=== PATIENT | female | born 1955 | race Caucasian/White ===

== ENCOUNTER 2019-10-21 01:46 | Inpatient (IN) | payer BC ==
[2019-10-21] VITALS (9 sets, daily range): BP systolic 123–157; BP diastolic 52–87
[~2019-10-21] VITALS: Ht 167.6 cm; Wt 74.4 kg
--- NOTE | 2019-10-21 02:17 | Emergency Room Report ---
History of Present Illness General Chief Complaint: Gastrointestinal Illness Source: Patient Present Illness HPI Patient is a 64-year-old female status post partial colectomy with pouch placement who presents to the ER for slipped valve. Patient is unable to catheterize her pouch. She just flew in from [place] and is a patient of Dr. Ortiz. Patient denies any fever or chills. She denies any nausea or vomiting. She denies any abdominal pain. Allergies: Uncoded Allergies: SULFA (Allergy, Unknown, 10/21/19) COVID-19 Screening Contact w/high risk pt: No Recent Travel to affected area: No Experienced COVID-19 symptoms?: No COVID-19 Testing performed HEAD INSPECTOR: No Patient History Reviewed Nursing Documentation: PMH: Agreed; PSxH: Agreed Nursing Documentation-PMH Hx Gastrointestinal Problems: Yes - UC, Review of Systems All Other Systems: negative except mentioned in HPI Physical Exam Vital Signs Date Time Temp Pulse Resp B/P (MAP) Pulse Ox O2 Delivery O2 Flow Rate FiO2 10/21/19 02:06 98.1 77 19 136/67 (90) 99 Room Air Sp02 EP Interpretation: reviewed, normal General Appearance: no apparent distress, alert, GCS 15, non-toxic Head: normocephalic, atraumatic Eyes: bilateral eye normal inspection, bilateral eye PERRL ENT: hearing grossly normal, normal pharynx, no angioedema, normal voice Neck: full range of motion, supple/symm/no masses Respiratory: chest non-tender, lungs clear, normal breath sounds, speaking full sentences Cardiovascular #1: regular rate, rhythm, no edema Gastrointestinal: non tender, soft, no guarding, no rebound, other - RLQ patent stoma with catheter tied off in place Rectal: deferred Genitourinary: no CVA tenderness Musculoskeletal: normal inspection Neurologic: alert, mail sorter III-XII nml as tested, oriented, oriented x3 Psychiatric: no suicidal/homicidal ideation Skin: no rash Lymphatic: no adenopathy Procedures Critical Care Time Critical Care Time Total critical care time: Approximately 35 minutes. Due to a high probability of clinically significant, life threatening deterioration, the patient required my highest level of preparedness to intervene emergently and I personally spent this critical care time directly and personally managing the patient. This critical care time included obtaining a history; examining the patient; pulse oximetry; ordering and review of studies; arranging urgent treatment with development of a management plan; evaluation of patient's response to treatment ; frequent reassessment; and, discussions with other providers.This critical care time was performed to assess and manage the high probability of imminent, life-threatening deterioration that could result in multi-organ failure. It was exclusive of separately billable procedures and treating other patients and teaching time. Please see MDM section and the rest of the note for further information on patient assessment and treatment. Medical Decision Making Diagnostic Impression: Primary Impression: Anemia Additional Impressions: Hyponatremia Gastroenterology follow-up encounter Hypomagnesemia ER Course Patient found to be hyponatremic with a sodium of 122. Patient also anemic with hemoglobin of 7.7. 1 unit of packed red blood cells has been ordered and is pending. Patient states that she has a history of anemia requiring blood transfusions in the past. Patient given 1 L of IV fluids. Patient also found to be hypomagnesemic with a magnesium level of 1.4. 1 g of magnesium sulfate has been ordered. Dr. Corbett called ahead and already has a bed ordered for the patient. He said that he did not need to be reconsulted unless something was emergent. Patient to be admitted to his service for further treatment and evaluation. Laboratory Tests Test 10/21/19 02:35 White Blood Count 3.5 K/UL (4.8-10.8) L Red Blood Count 3.86 M/UL (4.20-5.40) L Hemoglobin 7.7 G/DL (12.0-16.0) L Hematocrit 30.5 % (37.0-47.0) L Mean Corpuscular Volume 79 FL (80-99) L Mean Corpuscular Hemoglobin 20.0 PG (27.0-31.0) L Mean Corpuscular Hemoglobin Concent 25.3 G/DL (32.0-36.0) L Red Cell Distribution Width 12.3 % (11.6-14.8) Platelet Count 453 K/UL (150-450) H Mean Platelet Volume 5.0 FL (6.5-10.1) L Neutrophils (%) (Auto) % (45.0-75.0) Lymphocytes (%) (Auto) % (20.0-45.0) Monocytes (%) (Auto) % (1.0-10.0) Eosinophils (%) (Auto) % (0.0-3.0) Basophils (%) (Auto) % (0.0-2.0) Prothrombin Time 11.1 SEC (9.30-11.50) Prothrombin Time INR 1.0 (0.9-1.1) Activated Partial Thromboplast Time 27 SEC (23-33) Urine Color Pale yellow Urine Appearance Clear Urine pH 6 (4.5-8.0) Urine Specific [place] 1.005 (1.005-1.035) Urine Protein Negative (NEGATIVE) Urine Glucose (UA) Negative (NEGATIVE) Urine Ketones Negative (NEGATIVE) Urine Blood Negative (NEGATIVE) Urine Nitrite Negative (NEGATIVE) Urine Bilirubin Negative (NEGATIVE) Urine Urobilinogen Normal MG/DL (0.0-1.0) Urine Leukocyte Esterase Negative (NEGATIVE) Sodium Level 122 MMOL/L (136-145) L Potassium Level 3.6 MMOL/L (3.5-5.1) Chloride Level 83 MMOL/L (98-107) L Carbon Dioxide Level 29 MMOL/L (21-32) Anion Gap 10 mmol/L (5-15) Blood Urea Nitrogen 8 mg/dL (7-18) Creatinine 0.9 MG/DL (0.55-1.30) Estimated Glomerular Filtration Rate > 60 mL/min (>60) Glucose Level 105 MG/DL (74-106) Calcium Level 9.4 MG/DL (8.5-10.1) Magnesium Level 1.4 MG/DL (1.8-2.4) L Total Bilirubin 0.5 MG/DL (0.2-1.0) Aspartate Amino Transferase (AST) 44 U/L (15-37) H Alanine Aminotransferase (ALT) 57 U/L (12-78) Alkaline Phosphatase 89 U/L (46-116) Total Protein 8.5 G/DL (6.4-8.2) H Albumin 3.8 G/DL (3.4-5.0) Globulin 4.7 g/dL Albumin/Globulin Ratio 0.8 (1.0-2.7) L Last Vital Signs Date Time Temp Pulse Resp B/P (MAP) Pulse Ox O2 Delivery O2 Flow Rate FiO2 10/21/19 02:06 98.1 77 19 136/67 (90) 99 Room Air Disposition: ADMITTED INPATIENT Condition: Critical Mitzy Montes M.D. Oct 21, 2019 02:17
--- NOTE | 2019-10-21 02:30 | NUR ---
ED Nurse Note: Pt walked into ED from home for c/o valve issue from BCIR. Pt notes BCIR was done about 15 years ago in [place]. She is now a pt of Dr. Corbett. Pt denies fever, cough, SOB. Pt denies any pain. Pt is aaox4, breathing is normal and unlabored. Pt is ambulatory with steady gait. IV line established, blood drawn and sent to lab. Urine sample also obtained.
[2019-10-21 02:53] LABS: APPEARANCE,URINE CLEAR; BILIRUBIN, URINE NEGATIVE (NEGATIVE); COLOR,URINE PALE YELLOW; GLUCOSE, URINE (UA) NEGATIVE (NEGATIVE); KETONES,URINE NEGATIVE (NEGATIVE); LEUKOCYTE ESTERASE ,URINE NEGATIVE (NEGATIVE); NITRITE,URINE NEGATIVE (NEGATIVE); PH,URINE 6 (4.5-8.0); PROTEIN,URINE NEGATIVE (NEGATIVE); UROBILINOGEN,URINE NORMAL MG/DL (0.0-1.0)
[2019-10-21 02:54] LABS: HEMATOCRIT 30.5 % (37.0-47.0); HEMOGLOBIN 7.7 G/DL (12.0-16.0); MEAN CORPUSCULAR VOLUME 79 FL (80-99); PLATELET COUNT 453 K/UL (150-450); RED BLOOD COUNT 3.86 M/UL (4.20-5.40); RED CELL DISTRIBUTION WIDTH 12.3 % (11.6-14.8); WHITE BLOOD COUNT 3.5 K/UL (4.8-10.8)
[2019-10-21 03:05] LABS: ANION GAP 10 mmol/L (5-15); BLOOD UREA NITROGEN 8 mg/dL (7-18); CALCIUM 9.4 MG/DL (8.5-10.1); CARBON DIOXIDE 29 MMOL/L (21-32); CHLORIDE 83 MMOL/L (98-107); CREATININE 0.9 MG/DL (0.55-1.30); POTASSIUM 3.6 MMOL/L (3.5-5.1); SODIUM 122 MMOL/L (136-145)
[2019-10-21 03:09] LABS: ALANINE AMINOTRANSFERASE 57 U/L (12-78); ALBUMIN 3.8 G/DL (3.4-5.0); ALBUMIN/GLOBULIN RATIO 0.8 (1.0-2.7); ALKALINE PHOSPHATASE 89 U/L (46-116); ASPARTATE AMINO TRANSFERASE 44 U/L (15-37); BILIRUBIN,TOTAL 0.5 MG/DL (0.2-1.0)
--- NOTE | 2019-10-21 05:00 | NUR ---
ED Nurse Note: Blood transfusion started at this time. VSS. Will monitor pt for signs of transfusion reaction.
--- NOTE | 2019-10-21 05:15 | NUR ---
ED Nurse Note: Pt is tolerating transfusion well. No adverse reactions noted. PRBCs infusing at 120 ml/hr now. Will continue to monitor. VSS. Pt is resting in bed.
[2019-10-21] MEDS ORDERED: CYMBALTA30 MG ORAL (05:20)
[2019-10-21] MEDS ORDERED: ZYPREXA10 MG ORAL (05:20)
[2019-10-21] MEDS ORDERED: LORAZEPAM2 MG/1 M1 PO (05:20)
--- NOTE | 2019-10-21 05:20 | NUR ---
ED Nurse Note: Report given to MARIANO Webber.
--- NOTE | 2019-10-21 05:27 | NUR ---
NURSE NOTES: Received telephone report from MARIANO Olmstead (ED). Pt will be coming up shortly.
--- NOTE | 2019-10-21 05:30 | NUR ---
ED Nurse Note: Pt is stable for trasnfer to unit at this time per ERMD. Pt is aaox4, no respiratory or cardiac distress. Pt taken to unit via gurney by RN. Pt belongings sent with pt. Endorsed plan of care and pt is going to unit with PRBCs infusing at 120 ml/hr to receiving RN. VSS. Pt IVs are patent and intact. Pt has no complaints at this time. Transferred without complications.
--- NOTE | 2019-10-21 05:40 | NUR ---
NURSE NOTES: Received pt from ED. Pt ambulatory. A&ox4, in room air. No s/s of acute distress & n c/o pain at this time. Pt belongings signed & accounted for. Oriented to hospital facility. Will enter written orders from Dr. Corbett. Easily put in 28fr maravilla into pouch, flushed with 20cc of NS. Pt tolerated very well current blood transfusion infusing. IV sites x2 intact. Skin assessment done. Plan of care discussed.
[2019-10-21] MEDS ORDERED: LORazepam 1mg tab ORAL PRN (06:30)
--- NOTE | 2019-10-21 07:00 | NUR ---
NURSE NOTES: Blood transfusion done. VSS.
--- NOTE | 2019-10-21 07:14 | Diagnostic Imaging Report ---
ADDENDUM - Added by Semaj Valle MD on 10/21/2019 9:35 AM (-04:00) Only a frontal view of the chest was submitted. EXAM: XR Chest, 2 Views CLINICAL HISTORY: PREOP TECHNIQUE: Frontal and lateral views of the chest. COMPARISON: No relevant prior studies available. FINDINGS: Lungs: Unremarkable. No consolidation. Mild, chronically increased interstitial markings. Pleural space: Unremarkable. No pneumothorax. Heart: Unremarkable. No cardiomegaly. Mediastinum: Unremarkable. Bones/joints: Surgical clip within the left upper quadrant. IMPRESSION: Normal chest x-rays.
[2019-10-21] MEDS ORDERED: D5 1/2NS w/KCl 20mEq 1,000 ML IV SCH (07:30)
--- NOTE | 2019-10-21 07:30 | NUR ---
HAND-OFF: Report given to MARIANO Burton. Pt in stable condition.
--- NOTE | 2019-10-21 07:44 | NUR ---
NURSE NOTES: Report received from Lawanda RN, rounds made. Patient AOx4 calm. No distress on RA. Respirations even/unlabored. Blood transfusion completed, NS infusing to clear blood from line, via RFA, site asymptomatic. LH heplock intact. Right abdomen BCIR in place, catheter secured with silk tape, draining to gravity, light green output, will irrigate every 3 hours as ordered. Denies pain, SOB, NV. Reinforced NPO status, ice chips provided. Plans for Saucedo Pouch Endoscopy today, consent signed. Call light in reach, bed in lowest position, will continue to monitor.
--- NOTE | 2019-10-21 08:28 | General Progress Note ---
Progress Note Progress Note H&P dictated. Admitted from ED with malfunctioning Saucedo Continent ileostomy with severe difficulty intubating her pouch, and gross incontinence of stool and gas. She has not had bleeding. She took Cipro for pouchitis 3 months ago, first episode in years. In ED found to have Hgb 7.7 Na 122 Mg 1.4 AVSS Abdomen soft, flat, long midline scar, Saucedo pouch stoma low in RLQ 28 Simmons readily inserted into Saucedo pouch WBC 3500 Hgb 7.7 (transfused one unit in ED) Platelets 453,000 Na 122 K 3.6 BUN 8 Cr 0.9 Mg 1.4 albumin 3.8 Imp: Malfunctioning Saucedo continent ileostomy with inability to intubate to evacuate stool Severe anemia - no history of bleeding Severe hyponatremia Plan: Transfuse 2 units PRBC (one given in ED) Mg infusions STAT Fe, ferritin, B12 and folic acid levels F/U labs in AM Continuous drainage of Saucedo pouch Endoscopy today of Saucedo continent ileostomy Dayron Corbett MD Oct 21, 2019 08:28
[2019-10-21] MEDS ORDERED: LORazepam 1mg tab ORAL SCH (09:00)
[2019-10-21] MEDS ORDERED: OLANZapine 10mg tab ORAL SCH (09:00)
--- NOTE | 2019-10-21 09:27 | Anethesia Preoperative Eval ---
Anesthesia Pre-op PMH/ROS General Date of Evaluation: Oct 21, 2019 Anesthesiologist: Cande ASA Score: ASA 3 Mallampati Score Class I : Soft palate, uvula, fauces, pillars visible Class II: Soft palate, uvula, fauces visible Class III: Soft palate, base of uvula visible Class IV: Only hard plate visible Mallampati Classification: Class II Surgeon: Aric Diagnosis: Malfunctioning Saucedo Continent Ileostomy Surgical Procedure: Revision Malfunctioning Saucedo Continent Ileostomy Family History: no anesthesia problems Allergies: Uncoded Allergies: SULFA (Allergy, Unknown, 10/21/19) Medications: see eMAR Patient NPO?: Yes Past Medical History Cardiovascular: Reports: HTN Gastrointestinal/Genitourinary: Reports: other - Ulcerative Colitis Neurologic/Psychiatric: Reports: depression/anxiety Hematology/Immune: Reports: anemia - Severe PSxH Narrative: Partial Colectomy, BCIR Anesthesia Pre-op Phys. Exam Physician Exam Last Vital Signs Date Time Temp Pulse Resp B/P (MAP) Pulse Ox O2 Delivery O2 Flow Rate FiO2 10/21/19 08:00 98.0 77 19 137/67 (90) 97 10/21/19 06:44 Room Air Constitutional: NAD Neurologic: CN 2-12 intact Cardiovascular: RRR Respiratory: CTA Gastrointestinal: S/NT/ND Airway Exam Mallampati Score: Class II MO: full ROM: full Teeth: missing, intact Anesthesia Pre-op A/P Labs Hematology Test 10/21/19 02:35 White Blood Count 3.5 K/UL (4.8-10.8) L Red Blood Count 3.86 M/UL (4.20-5.40) L Hemoglobin 7.7 G/DL (12.0-16.0) L Hematocrit 30.5 % (37.0-47.0) L Mean Corpuscular Volume 79 FL (80-99) L Mean Corpuscular Hemoglobin 20.0 PG (27.0-31.0) L Mean Corpuscular Hemoglobin Concent 25.3 G/DL (32.0-36.0) L Red Cell Distribution Width 12.3 % (11.6-14.8) Platelet Count 453 K/UL (150-450) H Mean Platelet Volume 5.0 FL (6.5-10.1) L Neutrophils (%) (Auto) % (45.0-75.0) Lymphocytes (%) (Auto) % (20.0-45.0) Monocytes (%) (Auto) % (1.0-10.0) Eosinophils (%) (Auto) % (0.0-3.0) Basophils (%) (Auto) % (0.0-2.0) Coagulation Test 10/21/19 02:35 Prothrombin Time 11.1 SEC (9.30-11.50) Prothromb Time International Ratio 1.0 (0.9-1.1) Activated Partial Thromboplast Time 27 SEC (23-33) Chemistry Test 10/21/19 02:35 Sodium Level 122 MMOL/L (136-145) L Potassium Level 3.6 MMOL/L (3.5-5.1) Chloride Level 83 MMOL/L (98-107) L Carbon Dioxide Level 29 MMOL/L (21-32) Anion Gap 10 mmol/L (5-15) Blood Urea Nitrogen 8 mg/dL (7-18) Creatinine 0.9 MG/DL (0.55-1.30) Estimat Glomerular Filtration Rate > 60 mL/min (>60) Glucose Level 105 MG/DL (74-106) Calcium Level 9.4 MG/DL (8.5-10.1) Magnesium Level 1.4 MG/DL (1.8-2.4) L Total Bilirubin 0.5 MG/DL (0.2-1.0) Aspartate Amino Transf (AST/SGOT) 44 U/L (15-37) H Alanine Aminotransferase (ALT/SGPT) 57 U/L (12-78) Alkaline Phosphatase 89 U/L (46-116) Total Protein 8.5 G/DL (6.4-8.2) H Albumin 3.8 G/DL (3.4-5.0) Globulin 4.7 g/dL Albumin/Globulin Ratio 0.8 (1.0-2.7) L Risk Assessment & Plan Assessment: ASA 3 Plan: GA Status Change Before Surgery: No Pre-Antibiotics Drug: Bernardino Jay MD Oct 21, 2019 09:27
--- NOTE | 2019-10-21 10:51 | Pre-Procedure Note/Attestation ---
Pre-Procedure Note/Attestation Complete Prior to Procedure Planned Procedure: not applicable Procedure Narrative: Saucedo continent ileostomy pouch endoscopy Indications for Procedure Pre-Operative Diagnosis: malfunctioning Saucedo pouch with difficulty intubating and incontinence Attestation I attest that I discussed the nature of the procedure; its benefits; risks and complications; and alternatives (and the risks and benefits of such alternatives ), prior to the procedure, with the patient (or the patient's legal premium representative). I attest that, if there was a reasonable possibility of needing a blood transfusion, the patient (or the patient's legal premium representative) was given the [facility] standardized written summary, pursuant to the Duane Balbina Blood Safety Act ([place] Health and Safety Code # 1645, as amended). I attest that I re-evaluated the patient just prior to the surgery and that there has been no change in the patient's H&P, except as documented below: none Dayron Corbett MD Oct 21, 2019 10:51
--- NOTE | 2019-10-21 11:25 | NUR ---
NURSE NOTES: PRBC (2 nd unit) started at 1110, vitals remains stable. Patient denies any adverse reaction at this time, will continue to monitor.
--- NOTE | 2019-10-21 11:51 | NUR ---
*-* NO INSURANCE INFORMATION IN THE BAR UNABLE TO SEND CLINICALS OR REVIEWS *-*
--- NOTE | 2019-10-21 12:40 | NUR ---
NURSE NOTES: Patient sent down to GI lab for Saucedo Pouch Endoscopy at this time, via gurney in stable condition, on RA. PRBC infusing to RFA, without difficulty, vitals stable, patient AOx4, calm. GI lab aware blood transfusion is currently infusing at this time. GI lab procedure checklist completed.
--- NOTE | 2019-10-21 12:45 | Pre-op HX & Phy Repo 2 SIG ---
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 The patient has a past history of ulcerative colitis and has previously undergone total colectomy with failed J-pouch and creation of Saucedo continent ileostomy and with revisions, all of which will be listed at the end of this dictation. In the past several weeks, she suddenly developed difficulty inserting her catheter and incontinence of stool and gas from her previously continent Saucedo pouch stoma. She was finally able to get a catheter in place, but this does not drain well. At the time she presented, her hemoglobin was 7.7. She has had no evidence of bleeding. She was hemodynamically stable. The patient was assessed and an indwelling 28-[place] Simmons catheter manipulated through her stoma into the continent ileostomy pouch and connected to gravity drainage. She required transfusion in the emergency department. PAST MEDICAL HISTORY: Operations, see list at the end of this dictation. MEDICATIONS: Zyprexa, Cymbalta, and lorazepam. ALLERGIES: Latex. PHYSICAL EXAMINATION: GENERAL: The patient is well developed and well nourished, 5 feet 8 inches, 165 pounds, in no distress with completely stable vital signs. VITAL SIGNS: Within normal limits. HEENT: Within normal limits. LUNGS: Clear. HEART: Regular rhythm. BREASTS: Without masses. ABDOMEN: Soft and not distended. There is a long midline scar with a periumbilical incisional hernia which is reducible and non-tender. The stoma of the Saucedo continent ileostomy is low in the right lower quadrant. PELVIC: By primary care recently. RECTAL: Status post proctectomy. EXTREMITIES: Without edema. Pulses 2+ femoral to pedal bilateral NEUROLOGIC: Physiologic. LABORATORY DATA: WBC 3500, hemoglobin 7.7, platelets 453,000. Sodium 122, potassium 3.6, BUN 8, creatinine 0.9. Magnesium is low 1.4. Albumin 3.8. Additional information. The patient states that she hardly ever has pouchitis, but she took Cipro three months ago. IMPRESSION: 1. Malfunctioning Saucedo continent ileostomy with inability to intubate and incontinence of stool and gas. 2. History of ulcerative colitis. 3. STATUS POST MULTIPLE ABDOMINAL OPERATIONS: 3.1. Total colectomy with ileoanal J-pouch first in 1989 and then repeated, failed both times. 3.2. Saucedo continent ileostomy in 1994. 3.3. Repair of spontaneous Saucedo pouch perforation with repair of 2 perforations 2009 3.4. Repair of Saucedo pouch fistula in 2012. (All of these operations were done in other states) PLAN: The patient will be admitted and will receive two units of blood and will have iron studies, vitamin B12, folic acid and ferritin levels. She will be given intravenous fluids to correct electolyte abnormalities, kept NPO with indwelling continent ileostomy pouch catheter to drainage. She will undergo pouch endoscopy to precisely define the cause of her difficulty with intubation and incontinence and she will be prepared for surgery to be performed when she is stable and fluid and electrolyte abnormalities and severe anemia have been corrected. Dayron Corbett M.D. DR: PERCY JOB#: [id number] CC: MORENO
--- NOTE | 2019-10-21 13:16 | Brief Operative Note ---
Immediate Post Operative Note Operative Note Pre-op Diagnosis: malfunctioning Saucedo pouch with difficulty intubating and incontinence Procedure: Saucedo continent ileostomy pouch endoscopy Post-op Diagnosis: partially slipped nipple valve Post-op Diagnosis: same as pre-op Findings: consistent w/pre-op dx studies Surgeon: danna Anesthesia: other - none Specimen: none Complications: none Condition: stable Fluids: none Estimated Blood Loss: none Drains: other - 28 maravilla to Saucedo pouch Packing: F Implant(s) used?: No Dayron Corbett MD Oct 21, 2019 13:16
[2019-10-21] MEDS ORDERED: Heparin1,000 units/500ml Premix(Conc:2 units/ml) IV PRN (13:30)
[2019-10-21] MEDS ORDERED: Lidocaine 1% Plain 30 ml INJ PRN (13:30)
--- NOTE | 2019-10-21 13:50 | NUR ---
NURSE NOTES: Patient returned from GI lab at this time. PRBC completed at 1350. Vitals stable. No adverse reaction.
[2019-10-21] MEDS ORDERED: DULoxetine 30mg cap ORAL SCH (14:00)
[2019-10-21] MEDS: DULoxetine 30mg cap ORAL SCH (14:24)
[2019-10-21] MEDS: NS w/KCl 20mEq 1000ml 1,000 ML IV SCH ×3 (14:47→20:21)
--- NOTE | 2019-10-21 15:41 | NUR ---
CASE MANAGEMENT: INITIAL REVIEW 64YR OLD FEMALE FROM HOME CC:GASTROINTESTINAL ILLNESS SI:MALFUNCTION HENNING POUCH WITH DIFFICULTY INTUBATING AND INCONTINENCE ABDOMINAL PAIN . GASTROENTEROLOGY F/U . ANEMIA . HYPONATREMIA . HYPOMAGNESEMIA 98.0 77 19 136/67 99% ON RA WBC 3.5 H/H 7.7/30.5 PLT 453 NA+122 CL-83 MG 1.4 AST 44 IS:IV KCL @100ML/HR POUCH ENDOSCOPY \: 3E MED SURG UNIT DCP: HOME WHEN STABLE
--- NOTE | 2019-10-21 17:15 | Procedure Note ---
DATE OF PROCEDURE: 10/21/2019 ENDOSCOPY PROCEDURE REPORT ENDOSCOPIST: Dayron Corbett MD. ANESTHESIA: None. SEDATION: None. PRE-ENDOSCOPY DIAGNOSES: 1. Malfunctioning Saucedo continent ileostomy with difficulty with intubation and incontinence. 2. History of ulcerative colitis. 3. Status post multiple abdominal operations including proctocolectomy with J-pouch, which failed with Saucedo pouch with multiple revisions. POST-ENDOSCOPY DIAGNOSES: 1. Malfunctioning Saucedo continent ileostomy with difficulty with intubation and incontinence. 2. History of ulcerative colitis. 3. Status post multiple abdominal operations including proctocolectomy with J-pouch, which failed with Saucedo pouch with multiple revisions. ENDOSCOPY PERFORMED: Saucedo continent ileostomy pouch endoscopy. DESCRIPTION OF PROCEDURE: The patient was positioned supine in the GI lab without any anesthesia or sedation given or required. Using a GIF-P140 endoscope, the small stoma low in the right lower quadrant was entered. The distance to the tip of the nipple valve was 9 to 10 cm, slightly redundant. The pouch was distensible and appeared with normal mucosa throughout. Retroflexed views revealed that the nipple valve was partially slipped. Withdrawal views confirmed the above findings. There was no evidence of fistula. After removing the endoscope, I was readily able to insert a 28-[place] Simmons catheter into the pouch and taped it to the skin and connected to a gravity drainage bag and put a dressing over the stoma. The patient will require laparotomy and revision of her Saucedo continent ileostomy. She tolerated the endoscopy well. Dayron Corbett M.D. DR: PERCY JOB#: [id number] CC:
[2019-10-21] MEDS: LORazepam 1mg tab ORAL SCH (18:41)
--- NOTE | 2019-10-21 19:28 | NUR ---
HAND-OFF: Report given to Lawanda RN, rounds made, patient stable. Outputs: Urine: 800 ml BCIR: 870 ml
--- NOTE | 2019-10-21 19:30 | NUR ---
NURSE NOTES: Received report from MARIANO Burton. Pt laying in bed a/ox4 on room air, No s/s of distress, Pt denies pain,Ileostomy intact and draining to gravity. IV fluids running on L hand 22G. Bed on low locked position, call light within reach, Will continue to monitor
[2019-10-21] MEDS: Dyna-Hex 2% Top Sol 2oz TOPIC SCH (20:00)
[2019-10-21] MEDS: Iron Sucrose 100 MG in NS 55 ML IV SCH (20:20)
[2019-10-21] MEDS: OLANZapine 10mg tab ORAL SCH (20:21)
[2019-10-22] VITALS: BP 113/67
[2019-10-22 04:00] VITALS: BP 141/73
[2019-10-22 07:08] LABS: ALANINE AMINOTRANSFERASE 46 U/L (12-78); ALBUMIN 3.1 G/DL (3.4-5.0); ALBUMIN/GLOBULIN RATIO 0.8 (1.0-2.7); ALKALINE PHOSPHATASE 75 U/L (46-116); ANION GAP 9 mmol/L (5-15); ASPARTATE AMINO TRANSFERASE 30 U/L (15-37); BILIRUBIN,TOTAL 0.8 MG/DL (0.2-1.0); BLOOD UREA NITROGEN 7 mg/dL (7-18); CALCIUM 8.6 MG/DL (8.5-10.1); CARBON DIOXIDE 27 MMOL/L (21-32); CHLORIDE 98 MMOL/L (98-107); CREATININE 0.8 MG/DL (0.55-1.30); PHOSPHORUS 3.2 MG/DL (2.5-4.9); POTASSIUM 3.5 MMOL/L (3.5-5.1); SODIUM 134 MMOL/L (136-145)
--- NOTE | 2019-10-22 07:10 | NUR ---
NURSE NOTES: Report received from Lawanda RN, rounds made. Patient resting in semi-fowlers position in bed, AOx4, calm. No distress on RA. Respirations even/unlabored. IV (heplocked, waiting on IVF from pharmacy) to , site asymptomatic. Right lower abdomen BCIR, dressing CDI, light green output to drainage bag. Denies SOB, pain, NV. Plan for PICC placement today, consent signed. Call light in reach, bed in lowest position, will continue to monitor.
[2019-10-22 07:13] LABS: BASOPHILS % (AUTO) 1.2 % (0.0-2.0); EOSINOPHILS % (AUTO) 5.4 % (0.0-3.0); HEMATOCRIT 41.1 % (37.0-47.0); HEMOGLOBIN 13.4 G/DL (12.0-16.0); LYMPHOCYTES % (AUTO) 18.8 % (20.0-45.0); MEAN CORPUSCULAR VOLUME 88 FL (80-99); NEUTROPHILS % (AUTO) 60.6 % (45.0-75.0); PLATELET COUNT 374 K/UL (150-450); RED BLOOD COUNT 4.69 M/UL (4.20-5.40); RED CELL DISTRIBUTION WIDTH 13.2 % (11.6-14.8); WHITE BLOOD COUNT 5.2 K/UL (4.8-10.8)
--- NOTE | 2019-10-22 07:28 | NUR ---
HAND-OFF: Report given to MARIANO Burton. Pt stable.
[2019-10-22 08:18] VITALS: BP 137/63
[2019-10-22] MEDS: LORazepam 1mg tab ORAL SCH ×2 (08:41→18:26)
[2019-10-22] MEDS: DULoxetine 30mg cap ORAL SCH (08:41)
[2019-10-22] MEDS ORDERED: DULoxetine 30mg cap ORAL SCH (09:00)
[2019-10-22] MEDS ORDERED: D5 1/2NS w/KCl 40meq 1000ml 1,000 ML IV SCH (09:30)
--- NOTE | 2019-10-22 09:54 | NUR ---
RD ASSESSMENT & RECOMMENDATIONS SEE CARE ACTIVITY FOR COMPLETE ASSESSMENT DAILY ESTIMATED NEEDS: Needs based on Surgery pending 73.6 25-30 kcals/kg 1309-3869 total kcals 1-2 g protein/kg 74-147 g total protein 25-30 mL/kg 0960-7736 total fluid mLs NUTRITION DIAGNOSIS: Altered GI function related malfunctioning BCIR ileo as evidenced by s/p pouch endoscopy, pending surgical revision. CURRENT DIET: BCIR PO DIET RECOMMENDATIONS: Per MD PARENTERAL NUTRITION RECOMMENDATIONS: D/AA Rate: 70 IL Rate: 9 Total Rate: 79 Volume: 1896 % Dextrose: 20 % AA: 5.4 Energy (kcals/kg): 1937 Protein (g/kg protein): 91 Nonprotein KCALS: 1574 GIR (mg CHO/kg/min): 3.1 % Fat KCALS: 22 NPC: N Ratio: 109:1 TPN Comment: - Rec D20% w/ 5.4% AA @70ml/hr + 20% IL @9ml/hr-> all 3:1. - Start rate per MD - Meets 100% est needs at goal, provides 26kcal/kg and 1.2g/kg pro, - IL <30%, GIR <5 ADDITIONAL RECOMMENDATIONS: 1) Obtain a standing weight as able 2) Monitor lytes, BG, LFt's w/ TPN w/ need for formulary modifications
--- NOTE | 2019-10-22 09:55 | General Progress Note ---
Progress Note Progress Note AVSS tolerating po intake with some incontinence of stool around the indwelling Saucedo pouch catheter which is to continuous gravity drainage Abdomen soft, non-tender Urine 1600 BCIR ileo 1190 WBC 5200 Hgb 13.4 after 2 units PRBC for Hgb 7.7 ??? Platelets down 374,000 Na up 134 (was 122) K 3.5 albumin low 3.1 Imp: Malfunctioning Saucedo pouch for surgery 10/24 Malnutrition due to above Plan: PICC placement today TPN starting tonight continuous drainage of Saucedo pouch Dayron Corbett MD Oct 22, 2019 09:55
--- NOTE | 2019-10-22 10:30 | NUR ---
NURSE NOTES: Patient up ambulating in halls, gait steady/stable. Denies dizziness or SOB, will continue to monitor.
--- NOTE | 2019-10-22 11:10 | NUR ---
CASE MANAGEMENT: REVIEW 10/22/19 SI: S/P POUCH ENDOSCOPY MALFUNCTION HENNING POUCH WITH DIFFICULTY INTUBATING AND INCONTINENCE ABDOMINAL PAIN . GASTROENTEROLOGY F/U . ANEMIA . HYPONATREMIA . HYPOMAGNESEMIA 98.2 102 19 137/63 99% ON RA ALBUMIN 3.1 IS:IV D5 @50ML/HR IV VENOFER QHS PICC LINE PLACEMENT \: 3E MED SURG UNIT DCP: HOME WHEN STABLE PLAN: PICC LINE PLACEMENT- ELECTRIC METER REPAIRER HELPER USE START ON TPN CONTINUOUS DRAINAGE HENNING POUCH
[2019-10-22 12:00] VITALS: BP 141/79
--- NOTE | 2019-10-22 12:38 | NUR ---
*-* INSURANCE *-* ALL CLINICALS AND REVIEWS HAVE BEEN FAXED TO: [facility]#[id number] P:[phone] F:[phone] Addendum: 10/25/19 at 1025 by JAYCE SIMS CM AUTH# [id number]
--- NOTE | 2019-10-22 13:05 | Brief Operative Note ---
Immediate Post Operative Note Operative Note Chief Complaint: Requires meterman IV access Pre-op Diagnosis: Ulcerative colitis Procedure: Left PICC Post-op Diagnosis: Same Post-op Diagnosis: same as pre-op Surgeon: Yeison Vazquez MD, MA Specimen: none Complications: none Fluids: 0 Estimated Blood Loss: minimal Drains: none Implant(s) used?: Yes - Left PICC, dual lumen 44cm Yeison Vazquez MD Oct 22, 2019 13:05
--- NOTE | 2019-10-22 13:15 | NUR ---
NURSE NOTES: Patient sent down for PICC placement via WC in stable condition at 1230. Patient returned at 1315. ASIA double lumen PICC in place, flushed, patent, IVF connected. Measurements done. PICC dressing, biopatch with small area bloody to left upper corner and scant bloody drainage in dressing, otherwise, dry/intact. Will continue to monitor.
--- NOTE | 2019-10-22 13:45 | NUR ---
NURSE NOTES: Changed BCIR dressing (4x4 with paper tape) at 1200 due to small amount of leaking. At 1315, noted BCIR dressing saturated (after patient returned from PICC placement). Dr. Corbett notified orders received for BCIR to be connected to suction (medium intermittent suction), updated patient, verbalized understanding. Provided skin care (skin intact, no redness), changed dressing (4x4, ABD, silk tape), connected BCIR to suction as ordered. Will continue to monitor. Addendum: 10/22/19 at 1734 by Josephine Newell RN Light green output noted to suction tubing and 25 ml to canister, upon connection.
[2019-10-22] MEDS ORDERED: Vitamin A&D ud Packet TOPIC PRN (15:45)
--- NOTE | 2019-10-22 16:00 | NUR ---
NURSE NOTES: BCIR continues to leak beneath catheter, dressing saturated. Dr. Corbett notified, orders for NPO after TPN is started, advance catheter in stoma, apply Vitamin A&D ointment to periostomal skin as skin barrier, patient updated, verbalized understanding. Soiled dressing removed, noted, catheter was out of stoma, provided skin care, applied vitamin A&D ointment to surrounding stoma skin, catheter cleaned with water, applied lube to catheter, reinserted, instant suction noted (800 ml to canister), catheter secured x2 with silk tape to right lower abdomen, new dressing applied (4x4, ABD, silk tape), will continue to monitor. Addendum: 10/22/19 at 1734 by Josephine Newell RN Master SOLORZANO at bedside at this time.
[2019-10-22] MEDS: Vitamin A&D Oint Tube TOPIC PRN (16:15)
[2019-10-22 16:30] VITALS: BP 146/72
--- NOTE | 2019-10-22 19:12 | NUR ---
HAND-OFF: Report given to Marcy QUINTANA, rounds made, patient sleeping. Outputs: Urine: 1125 ml BCIR: 1620 ml Addendum: 10/22/19 at 1943 by Josephine Newell RN Endorsed patient will be NPO after TPN is started tonight and BCIR set to medium intermittent suction.
--- NOTE | 2019-10-22 19:30 | NUR ---
NURSE NOTES: Receive a report from MARIANO Burton. Round is done. Pt is asleep without acute distress. Ileostomy is connected to intermittent suction and drained with brownish drainage. Fluid is running via PICC on ASIA. Pt is planning on starting TPN with NPO. Will continue to monitor.
[2019-10-22] MEDS ORDERED: Dextrose 10% 1,000 ML IV PRN (20:00)
[2019-10-22] MEDS: Dyna-Hex 2% Top Sol 2oz TOPIC SCH (20:21)
[2019-10-22] MEDS: Fat Emulsion Iv 20% 216 ML in Tpn 1,680 ML IV SCH (20:22)
[2019-10-22] MEDS: Iron Sucrose 100 MG in NS 55 ML IV SCH (20:23)
[2019-10-22 20:30] VITALS: BP 141/81
[2019-10-22] MEDS: OLANZapine 10mg tab ORAL SCH (20:38)
[2019-10-22] MEDS ORDERED: Fat Emulsion Iv 20% 250 ML IV SCH (21:00)
[2019-10-22] MEDS: NovoLOG Insulin Flexpen SUBQ SCH (23:49)
[2019-10-23] VITALS: BP 136/65
--- NOTE | 2019-10-23 03:00 | NUR ---
NURSE NOTES: Pt has been sleeping on right side and noted leaking from ileostomy insertion site dressing. Done dressing change. Ileostomy is wall intermittent suction. Will continue to monitor.
[2019-10-23 04:00] VITALS: BP 128/55
[2019-10-23 06:00] LABS: BASOPHILS % (AUTO) 0.9 % (0.0-2.0); EOSINOPHILS % (AUTO) 3.3 % (0.0-3.0); HEMATOCRIT 40.6 % (37.0-47.0); HEMOGLOBIN 13.2 G/DL (12.0-16.0); MEAN CORPUSCULAR VOLUME 87 FL (80-99); MONOCYTES % (AUTO) 8.7 % (1.0-10.0); NEUTROPHILS % (AUTO) 71.1 % (45.0-75.0); PLATELET COUNT 378 K/UL (150-450); RED BLOOD COUNT 4.66 M/UL (4.20-5.40); RED CELL DISTRIBUTION WIDTH 12.9 % (11.6-14.8); WHITE BLOOD COUNT 7.4 K/UL (4.8-10.8)
[2019-10-23] MEDS: NovoLOG Insulin Flexpen SUBQ SCH ×3 (06:00→17:55)
--- NOTE | 2019-10-23 06:00 | NUR ---
NURSE NOTES: Switched room change from 309 to 321 d/t construction. On NPO. TPN is running on ASIA via PICC. Will continue to monitor. 12hr output Urine:1600m Ileostomy: 470ml
[2019-10-23 06:27] LABS: ALANINE AMINOTRANSFERASE 41 U/L (12-78); ALBUMIN 3.1 G/DL (3.4-5.0); ALBUMIN/GLOBULIN RATIO 0.7 (1.0-2.7); ALKALINE PHOSPHATASE 75 U/L (46-116); ANION GAP 10 mmol/L (5-15); ASPARTATE AMINO TRANSFERASE 27 U/L (15-37); BILIRUBIN,TOTAL 0.4 MG/DL (0.2-1.0); BLOOD UREA NITROGEN 9 mg/dL (7-18); CALCIUM 8.8 MG/DL (8.5-10.1); CARBON DIOXIDE 27 MMOL/L (21-32); CHLORIDE 98 MMOL/L (98-107); CREATININE 0.9 MG/DL (0.55-1.30); POTASSIUM 3.8 MMOL/L (3.5-5.1); SODIUM 135 MMOL/L (136-145)
--- NOTE | 2019-10-23 07:45 | NUR ---
NURSE NOTES: Receive a report from MARIANO Vidal. Pt awake in bed. Alert and oriented x4. Pt c/o headache. Tylenol given as ordered. Ileostomy is connected to intermittent suction and drained with brownish drainage. Abdominal dressing clean and intact. PICC on ASIA intact and patent running TPN. Pt on NPO. Bed in low position and locked. Call light within reach. Will continue to monitor.
--- NOTE | 2019-10-23 07:50 | NUR ---
HAND-OFF: Report given to Ms. LEONELA RN. Round is made. Pt is in intermittent wall suction medium.
[2019-10-23 08:00] VITALS: BP 140/67
[2019-10-23] MEDS ORDERED: NS Irrig 1000ml ONE (08:39)
[2019-10-23] MEDS: LORazepam 1mg tab ORAL SCH ×2 (09:06→17:55)
--- NOTE | 2019-10-23 09:32 | General Progress Note ---
Progress Note Progress Note AVSS Saucedo pouch catheter to wall suction with less incontinence of stool around the catheter Abdomen soft Urine 2724 BCIR ileo 2089 labs all stable with albumin only 3.1 Imp: Malfunctioning Saucedo pouch Malnutrition Plan: clear liquid diet, continue TPN, indwelling BCIR catheter to suction Dayron Corbett MD Oct 23, 2019 09:32
[2019-10-23 12:00] VITALS: BP 140/71
[2019-10-23 16:00] VITALS: BP 144/72
--- NOTE | 2019-10-23 19:32 | NUR ---
HAND-OFF: Report given to MARIANO Vidal.
--- NOTE | 2019-10-23 19:35 | NUR ---
NURSE NOTES: Receive a report from Ms. Musa RN. Round is done. Pt is awake and alert. No acute distress noted. Denies any pain/ N/V. Ileostomy is connected wall suction-intermittent and medium. Ileostomy site dressing kept dry and clean. TPN is running via PICC on ASIA. Noted old blood clot on PICC site dressing site but no noted any swelling. On using BSC. Call light within reach. Will continue to monitor.
[2019-10-23 20:00] VITALS: BP 123/86
[2019-10-23] MEDS: Dyna-Hex 2% Top Sol 2oz TOPIC SCH (20:01)
[2019-10-23] MEDS: Iron Sucrose 100 MG in NS 55 ML IV SCH (20:33)
[2019-10-23] MEDS: Fat Emulsion Iv 20% 216 ML in Tpn 1,680 ML IV SCH (20:39)
[2019-10-23] MEDS: OLANZapine 10mg tab ORAL SCH (20:40)
--- NOTE | 2019-10-23 21:00 | NUR ---
NURSE NOTES: ZHOU relieved after prn medication. PICC site dressing changed d/t old blood stain. Insertion site is clean without redness but noted discoloration PICC insertion upper site. TPN is running as ordered. Will continue to monitor.
--- NOTE | 2019-10-23 21:30 | NUR ---
NURSE NOTES: Provide pre-op&post-op expected information bc pt expresses anxiety and worrisome r/t coming up surgery. Will continue to provide necessary information and education.
[2019-10-24] VITALS: BP 123/60
[2019-10-24] MEDS: NovoLOG Insulin Flexpen SUBQ SCH ×4 (00:09→18:00)
[2019-10-24 04:00] VITALS: BP 123/76
--- NOTE | 2019-10-24 06:00 | NUR ---
NURSE NOTES: Pt slept well overnight. Denies pain or discomfort. No leaking noted on ileostomy catheter site. Expresses about coming up surgery. Done emotional support and encouragement. Will continue to monitor. 12hr output Urine: 2750ml Ileostomy: 430ml
--- NOTE | 2019-10-24 07:30 | NUR ---
HAND-OFF: Report given to Ms. LEONELA RN. Round is done. Pt is having breakfast.
--- NOTE | 2019-10-24 07:45 | NUR ---
NURSE NOTES: Received report from MARIANO Vidal. Pt awake in bed in RA. No c/o pain or discomfort at this time. Ileostomy is connected to intermittent suction and draining with no leaking from ileo. Abdominal dressing clean and intact. PICC on ASIA intact and patent running TPN. Call light within reach. Will continue to monitor.
[2019-10-24 07:58] LABS: BASOPHILS % (AUTO) 1.3 % (0.0-2.0); EOSINOPHILS % (AUTO) 5.5 % (0.0-3.0); HEMATOCRIT 42.2 % (37.0-47.0); HEMOGLOBIN 13.4 G/DL (12.0-16.0); LYMPHOCYTES % (AUTO) 20.8 % (20.0-45.0); MEAN CORPUSCULAR VOLUME 90 FL (80-99); MONOCYTES % (AUTO) 11.6 % (1.0-10.0); NEUTROPHILS % (AUTO) 60.8 % (45.0-75.0); PLATELET COUNT 379 K/UL (150-450); RED BLOOD COUNT 4.68 M/UL (4.20-5.40); RED CELL DISTRIBUTION WIDTH 14.7 % (11.6-14.8)
[2019-10-24 08:00] VITALS: BP 127/85
[2019-10-24 08:00] LABS: ALANINE AMINOTRANSFERASE 12 U/L (12-78); ALBUMIN 3.3 G/DL (3.4-5.0); ALBUMIN/GLOBULIN RATIO 0.7 (1.0-2.7); ALKALINE PHOSPHATASE 76 U/L (46-116); ANION GAP 11 mmol/L (5-15); ASPARTATE AMINO TRANSFERASE 11 U/L (15-37); BILIRUBIN,TOTAL 0.2 MG/DL (0.2-1.0); BLOOD UREA NITROGEN 10 mg/dL (7-18); CALCIUM 9.3 MG/DL (8.5-10.1); CARBON DIOXIDE 27 MMOL/L (21-32); CHLORIDE 97 MMOL/L (98-107); CREATININE 0.9 MG/DL (0.55-1.30); PHOSPHORUS 6.1 MG/DL (2.5-4.9); POTASSIUM 3.5 MMOL/L (3.5-5.1); SODIUM 135 MMOL/L (136-145)
[2019-10-24] MEDS: LORazepam 1mg tab ORAL SCH ×2 (08:06→18:09)
--- NOTE | 2019-10-24 09:48 | General Progress Note ---
Progress Note Progress Note AVSS Leaking of stool around BCIR ileo catheter has stopped witih wall suction Abdomen soft Urine 2750 BCIR ileo 2200 loose effluent Phos 6.1 (to remove from TPN) Mg 1.7 Full discussion with patient regarding surgery, indications, alternatives, options and risks (bleeding, infection, injury to adjacent structures or organs , recurrent slipped valve or fistula or other difficulties with the structure of function of the pouch that could require additional surgery, etc; all questions answered. Plan: bowel prep po+IV antibiotics pre-op SQ heparin Surgery in AM continue TPN Dayron Corbett MD Oct 24, 2019 09:48
--- NOTE | 2019-10-24 11:00 | NUR ---
NURSE NOTES: Pt took a shower. PICC clean, dry and intact. Ileo dressing changed.
[2019-10-24 12:00] VITALS: BP 150/91
[2019-10-24] MEDS: Neomycin Sulfate 500mg Tab ORAL SCH ×3 (12:20→20:00)
[2019-10-24 16:00] VITALS: BP 155/80
[2019-10-24] MEDS ORDERED: NS Irrig 1000ml ONE ×2 (17:48→17:51)
[2019-10-24] MEDS ORDERED: Tubing Blood Filter IV ONE (17:51)
[2019-10-24] MEDS ORDERED: NS 275ml ONE (17:51)
[2019-10-24] MEDS ORDERED: Tubing IV Secondary IV ONE (17:51)
--- NOTE | 2019-10-24 19:30 | NUR ---
NURSE NOTES: Received report from MARIANO Vigil. Rounding is done. Pt awake in bed in RA, a/ox4. No c/o pain or discomfort at this time. Ileostomy is connected to intermittent suction and draining with no leaking from ileo. Abdominal dressing clean and intact. PICC on ASIA intact and patent running TPN. Bed is on alarm, locked, and lowest position. Call light within reach. Will continue to monitor.
[2019-10-24 20:00] VITALS: BP 132/84
[2019-10-24] MEDS: Fat Emulsion Iv 20% 216 ML in Tpn 1,680 ML IV SCH (20:00)
[2019-10-24] MEDS: Dyna-Hex 2% Top Sol 2oz TOPIC SCH (20:00)
--- NOTE | 2019-10-24 20:14 | NUR ---
HAND-OFF: Report given to MARIANO Smith.
[2019-10-24] MEDS: Iron Sucrose 100 MG in NS 55 ML IV SCH (20:57)
[2019-10-24] MEDS: OLANZapine 10mg tab ORAL SCH (20:57)
[2019-10-24] MEDS: Ampicillin/Sulbactam Sod 3 GM in NS 110 ML IV SCH (23:34)
[2019-10-25] VITALS: BP 149/71
[2019-10-25 04:00] VITALS: BP 135/85
[2019-10-25] MEDS: Ampicillin/Sulbactam Sod 3 GM in NS 110 ML IV SCH ×2 (05:52→23:21)
[2019-10-25] MEDS: Heparin 5000 units/ml inj SUBQ ONE ×2 (05:53→06:00)
[2019-10-25] MEDS: NovoLOG Insulin Flexpen SUBQ SCH ×5 (05:54→23:23)
--- NOTE | 2019-10-25 06:00 | NUR ---
NURSE NOTES: Dr. Corbett called for re-scheduling surgery.
[2019-10-25 06:09] LABS: EOSINOPHILS % (AUTO) 5.8 % (0.0-3.0); HEMATOCRIT 41.8 % (37.0-47.0); HEMOGLOBIN 13.3 G/DL (12.0-16.0); LYMPHOCYTES % (AUTO) 15.7 % (20.0-45.0); MEAN CORPUSCULAR VOLUME 90 FL (80-99); NEUTROPHILS % (AUTO) 66.5 % (45.0-75.0); PLATELET COUNT 369 K/UL (150-450); RED BLOOD COUNT 4.66 M/UL (4.20-5.40); RED CELL DISTRIBUTION WIDTH 14.8 % (11.6-14.8); WHITE BLOOD COUNT 6.5 K/UL (4.8-10.8)
[2019-10-25 06:43] LABS: ALANINE AMINOTRANSFERASE 37 U/L (12-78); ALBUMIN 3.2 G/DL (3.4-5.0); ALBUMIN/GLOBULIN RATIO 0.7 (1.0-2.7); ALKALINE PHOSPHATASE 79 U/L (46-116); ANION GAP 8 mmol/L (5-15); ASPARTATE AMINO TRANSFERASE 24 U/L (15-37); BILIRUBIN,TOTAL 0.2 MG/DL (0.2-1.0); BLOOD UREA NITROGEN 9 mg/dL (7-18); CALCIUM 8.9 MG/DL (8.5-10.1); CARBON DIOXIDE 28 MMOL/L (21-32); CHLORIDE 95 MMOL/L (98-107); CREATININE 0.9 MG/DL (0.55-1.30); PHOSPHORUS 3.9 MG/DL (2.5-4.9); POTASSIUM 3.6 MMOL/L (3.5-5.1); SODIUM 131 MMOL/L (136-145)
--- NOTE | 2019-10-25 07:50 | NUR ---
HAND-OFF: Report given to Jerrod QUINTANA. Patient in stable condition.
--- NOTE | 2019-10-25 07:57 | NUR ---
NURSE NOTES: Received report from [place] QUINTANA, rounds made , pt awake a/ox4, no s/s distress at RA, pt denies any pain, pt aware on the counseled surgery, pt has an ileo on the R lower abdomen, dressing clean intact connected to suction , pic line on ASIA with TPN, bed in low locked position side rails up X2, call light within reach, will continue with plan of care
[2019-10-25 08:00] VITALS: BP 128/81
[2019-10-25] MEDS: LORazepam 1mg tab ORAL SCH ×2 (08:31→17:34)
--- NOTE | 2019-10-25 10:14 | General Progress Note ---
Progress Note Progress Note doing well. Surgery rescheduled to tomorrow AM due to other emergencies tolerating TPN Abdomen soft, BCIR catheter draining well 3090cc Plan: Revision Lewis continent ileostomy in AM Dayron Corbett MD Oct 25, 2019 10:14
[2019-10-25 12:00] VITALS: BP 157/82
--- NOTE | 2019-10-25 15:54 | NUR ---
*-* INSURANCE *-* ALL CLINICALS HAVE BEEN FAXED TO: [facility] AUTH#[id number] P:[phone] F:[phone]
[2019-10-25 16:00] VITALS: BP 148/82
--- NOTE | 2019-10-25 19:30 | NUR ---
NURSE NOTES: Received report from MARIANO Gil. Rounding is done. Pt awake in bed in RA, a/ox4. Patient c/o Headache and will give medication as ordered. No any distress noted at this time. Ileostomy is connected to intermittent suction and draining with no leaking from ileo. Abdominal dressing clean and intact. PICC on ASIA intact and patent running TPN. Bed is on alarm, locked, and lowest position. Call light within reach. Will continue to monitor.
[2019-10-25 20:00] VITALS: BP 138/68
[2019-10-25] MEDS: Iron Sucrose 100 MG in NS 55 ML IV SCH (20:49)
[2019-10-25] MEDS: OLANZapine 10mg tab ORAL SCH (20:49)
[2019-10-25] MEDS: Dyna-Hex 2% Top Sol 2oz TOPIC SCH (20:49)
[2019-10-25] MEDS: Fat Emulsion Iv 20% 216 ML in Tpn 1,680 ML IV SCH (20:50)
[2019-10-26] VITALS (14 sets, daily range): BP systolic 109–152; BP diastolic 52–78
[2019-10-26] MEDS: Ampicillin/Sulbactam Sod 3 GM in NS 110 ML IV SCH ×3 (05:08→17:49)
[2019-10-26] MEDS: NovoLOG Insulin Flexpen SUBQ SCH ×3 (05:16→17:48)
[2019-10-26 06:24] LABS: BASOPHILS % (AUTO) 1.2 % (0.0-2.0); EOSINOPHILS % (AUTO) 6.7 % (0.0-3.0); HEMATOCRIT 42.4 % (37.0-47.0); HEMOGLOBIN 13.3 G/DL (12.0-16.0); MEAN CORPUSCULAR VOLUME 90 FL (80-99); MONOCYTES % (AUTO) 12.5 % (1.0-10.0); NEUTROPHILS % (AUTO) 60.6 % (45.0-75.0); PLATELET COUNT 337 K/UL (150-450); RED CELL DISTRIBUTION WIDTH 14.9 % (11.6-14.8); WHITE BLOOD COUNT 5.4 K/UL (4.8-10.8)
[2019-10-26 06:45] LABS: ALANINE AMINOTRANSFERASE 35 U/L (12-78); ALBUMIN/GLOBULIN RATIO 0.7 (1.0-2.7); ALKALINE PHOSPHATASE 85 U/L (46-116); ANION GAP 9 mmol/L (5-15); ASPARTATE AMINO TRANSFERASE 23 U/L (15-37); BILIRUBIN,TOTAL 0.4 MG/DL (0.2-1.0); BLOOD UREA NITROGEN 10 mg/dL (7-18); CALCIUM 8.7 MG/DL (8.5-10.1); CARBON DIOXIDE 29 MMOL/L (21-32); CHLORIDE 95 MMOL/L (98-107); CREATININE 0.9 MG/DL (0.55-1.30); POTASSIUM 3.3 MMOL/L (3.5-5.1); SODIUM 133 MMOL/L (136-145)
--- NOTE | 2019-10-26 07:06 | NUR ---
NURSE NOTES: Received report from [place] QUINTANA, rounds made , pt awake a/ox4, no s/s distress at RA, pt denies any pain, pt verbalizes feeling anxious due to the upcoming surgery , pt has an ileo on the R lower abdomen, dressing clean intact connected to suction , pic line on ASIA with TPN, bed in low locked position side rails up X2, call light within reach, will continue to monitor
--- NOTE | 2019-10-26 07:09 | NUR ---
HAND-OFF: Report given to Jerrod QUINTANA. Patient in stable condition.
--- NOTE | 2019-10-26 07:52 | Pre-Procedure Note/Attestation ---
Pre-Procedure Note/Attestation Complete Prior to Procedure Planned Procedure: not applicable Procedure Narrative: revision of Saucedo continent ileostomy Indications for Procedure Pre-Operative Diagnosis: malfunctioning Saucedo pouch with difficulty intubating and incontinence Attestation I attest that I discussed the nature of the procedure; its benefits; risks and complications; and alternatives (and the risks and benefits of such alternatives ), prior to the procedure, with the patient (or the patient's legal sales representative church furniture). I attest that, if there was a reasonable possibility of needing a blood transfusion, the patient (or the patient's legal sales representative church furniture) was given the [facility] standardized written summary, pursuant to the [place] Blood Safety Act ([place] Health and Safety Code # 1645, as amended). I attest that I re-evaluated the patient just prior to the surgery and that there has been no change in the patient's H&P, except as documented below:none Dayron Corbett MD Oct 26, 2019 07:52
[2019-10-26] MEDS: LORazepam 1mg tab ORAL SCH (08:13)
--- NOTE | 2019-10-26 10:48 | NUR ---
RD ASSESSMENT & RECOMMENDATIONS SEE CARE ACTIVITY FOR COMPLETE ASSESSMENT DAILY ESTIMATED NEEDS: Needs based on Surgery pending 73.6 25-30 kcals/kg 5902-1361 total kcals 1-2 g protein/kg 74-147 g total protein 25-30 mL/kg 5779-6250 total fluid mLs NUTRITION DIAGNOSIS: Altered GI function related malfunctioning BCIR ileo as evidenced by s/p pouch endoscopy, pending surgical revision. CURRENT DIET: Now NPO PO DIET RECOMMENDATIONS: Per MD PARENTERAL NUTRITION RECOMMENDATIONS: D/AA Rate: 70 IL Rate: 9 Total Rate: 79 Volume: 1896 % Dextrose: 20 % AA: 5.4 Energy (kcals/kg): 1937 Protein (g/kg protein): 91 Nonprotein KCALS: 1574 GIR (mg CHO/kg/min): 3.1 % Fat KCALS: 22 NPC: N Ratio: 109:1 TPN Comment: - Rec D20% w/ 5.4% AA @70 w/ IL 20% @9ML/HR, all 3:1 - Meets 100% est needs at goal, provides 26kcal/kg and 1.2g/kg pro, - IL <30%, GIR <5 ADDITIONAL RECOMMENDATIONS: 1) Obtain a standing weight as able 2) Monitor lytes, BG, LFt's w/ TPN w/ need for formulary modifications
[2019-10-26] MEDS ORDERED: NeoSporin Gu Irrig 1ml Amp IRRIG ONE (10:57)
[2019-10-26] MEDS ORDERED: Bacitracin 50000 Units Vial ONE (10:57)
[2019-10-26] MEDS ORDERED: Heparin 5000 units/ml inj SUBQ ONE (11:00)
[2019-10-26] MEDS ORDERED: NS Irrig 1000ml IRRIG ONE ×2 (11:04→12:41)
--- NOTE | 2019-10-26 11:05 | NUR ---
*-* INSURANCE *-* UPDATED CLINICALS HAVE BEEN FAXED TO: [facility] AUTH#[id number] P:[phone] F:[phone]
--- NOTE | 2019-10-26 11:57 | NUR ---
NURSE NOTES: To Surgery
[2019-10-26] MEDS ORDERED: Ampicillin/Sulbactam Sod 3 GM in NS 110 ML IV SCH (12:00)
[2019-10-26] MEDS ORDERED: fentaNYL 100 mcg/2 mL IV ONE (12:05)
[2019-10-26] MEDS ORDERED: Midazolam 2mg/2ml Inj ONE (12:05)
[2019-10-26] MEDS ORDERED: Lidocaine 1% MPF 10mg/ml 5ml ONE (12:08)
[2019-10-26] MEDS ORDERED: NS Irrig 1000ml ONE (12:30)
[2019-10-26] MEDS ORDERED: Sterile Water Irrig 1000ml IRRIG ONE (12:30)
[2019-10-26] MEDS ORDERED: LR 1000ml ONE (12:30)
[2019-10-26] MEDS ORDERED: propofoL 1,000mg/100ml IV ONE (12:30)
[2019-10-26] MEDS ORDERED: Rocuronium Bromide 100mg/10ml Inj IV ONE (12:36)
[2019-10-26] MEDS ORDERED: Morphine Sulfate 10mg/ml Inj ONE (13:20)
[2019-10-26] MEDS ORDERED: Sodium Chloride 10ml vial INJ ONE (13:21)
[2019-10-26] MEDS ORDERED: Glycopyrrolate 0.2mg/ml 1ml Vial ONE (13:23)
[2019-10-26] MEDS ORDERED: Acetaminophen (Non formulary) 100 ML IV ONE (13:30)
[2019-10-26] MEDS ORDERED: LR 1000ml 1,000 ML IVLG SCH (13:43)
[2019-10-26] MEDS ORDERED: DiphenhydrAMINE 50mg/ml Inj IVP PRN ×2 (13:45→14:30)
[2019-10-26] MEDS ORDERED: Midazolam 2mg/2ml Inj IVP PRN (13:45)
[2019-10-26] MEDS ORDERED: Hydromorphone 0.5mg/0.5ml inj IVP PRN (13:45)
[2019-10-26] MEDS ORDERED: Ketorolac 30mg Inj IV PRN (13:45)
[2019-10-26] MEDS ORDERED: Naloxone 0.4mg/ml Inj IVP PRN (14:30)
[2019-10-26] MEDS ORDERED: PCA Education Pamphlet MISC ONE (14:30)
[2019-10-26] MEDS ORDERED: Rate Change PCA 1 Each MISC PRN (14:30)
--- NOTE | 2019-10-26 14:32 | Brief Operative Note ---
Immediate Post Operative Note Operative Note Pre-op Diagnosis: malfunctioning Saucedo pouch with difficulty intubating and incontinence Procedure: laparotomy with revision of Saucedo continent ileostomy valve Post-op Diagnosis: same Post-op Diagnosis: same as pre-op Findings: consistent w/pre-op dx studies Surgeon: danna Additional Surgeons: collins Anesthesiologist: ingrid Anesthesia: general Specimen: none Complications: none Condition: stable Fluids: see anesthesia record Estimated Blood Loss: minimal Drains: other - 28 Simmons to Saucedo pouch Implant(s) used?: No Dayron Corbett MD Oct 26, 2019 14:32
--- NOTE | 2019-10-26 14:42 | Immediate Post-Op Evaluation ---
Immediate Post-Op Evalulation Immediate Post-Op Evalulation Procedure: Exploratory laparotomy, revision of continent pouch Date of Evaluation: Oct 26, 2019 Time of Evaluation: 14:41 IV Fluids: 600 Blood Products: none Estimated Blood Loss: <50 Urinary Output: 350 Blood Pressure Systolic: 150 Blood Pressure Diastolic: 70 Pulse Rate: 78 Respiratory Rate: 20 O2 Sat by Pulse Oximetry: 99 Temperature (Fahrenheit): 98.0 Pain Score (1-10): 3 Nausea: No Vomiting: No Complications none Patient Status: awake, patent, extubated, none Hydration Status: adequate Mookie Fried MD Oct 26, 2019 14:42
[2019-10-26] MEDS: PCA Morphine 1mg/ml 30 ML IV PRN ×2 (15:11→20:35)
--- NOTE | 2019-10-26 15:45 | NUR ---
NURSE NOTES: pt came back from surgery, in stable condition,a/ox4, breaths regular unlabored at 2 L NC c/o pain 12/19 reenforced the use of CREW LEAD , received report from Shayy QUINTANA,pt had surgery and tolerated it well,pt started on CREW LEAD , Simmons inserted and anchored will continue to monitor
--- NOTE | 2019-10-26 16:51 | NUR ---
CASE MANAGEMENT: REVIEW 10/23/19 SI: S/P POUCH ENDOSCOPY MALFUNCTION HENNING POUCH WITH DIFFICULTY INTUBATING AND INCONTINENCE ABDOMINAL PAIN . GASTROENTEROLOGY F/U . ANEMIA . HYPONATREMIA . HYPOMAGNESEMIA 98.5 83 18 140/67 98% ON RA ALBUMIN 3.1 IS:IV D5 @50ML/HR IV VENOFER QHS \: 3E MED SURG UNIT DCP: HOME WHEN STABLE CASE MANAGEMENT: REVIEW 10/24/19 SI: S/P POUCH ENDOSCOPY MALFUNCTION HENNING POUCH WITH DIFFICULTY INTUBATING AND INCONTINENCE ABDOMINAL PAIN . GASTROENTEROLOGY F/U . ANEMIA . HYPONATREMIA . HYPOMAGNESEMIA 98.8 96 18 127/85 95% ON RA ALBUMIN 3.1 IS:IV D5 @50ML/HR IV VENOFER QHS \: 3E MED SURG UNIT DCP: HOME WHEN STABLE CASE MANAGEMENT: REVIEW 10/25/19 SI: S/P POUCH ENDOSCOPY MALFUNCTION HENNING POUCH WITH DIFFICULTY INTUBATING AND INCONTINENCE ABDOMINAL PAIN . GASTROENTEROLOGY F/U . ANEMIA . HYPONATREMIA . HYPOMAGNESEMIA 98.9 89 17 128/81 97% ON RA ALBUMIN 3.1 IS:IV AMPICILLIN Q6HR IV D5 @50ML/HR IV VENOFER QHS \: 3E MED SURG UNIT DCP: HOME WHEN STABLE CASE MANAGEMENT: REVIEW 10/26/19 SI: S/P POUCH ENDOSCOPY MALFUNCTION HENNING POUCH WITH DIFFICULTY INTUBATING AND INCONTINENCE ABDOMINAL PAIN . GASTROENTEROLOGY F/U . ANEMIA . HYPONATREMIA . HYPOMAGNESEMIA 98.3 81 20 120/65 98% ON RA ALBUMIN 3.1 IS:IN SURGERY TODAY FOR REVISION IV FLAGYL Q6HR IV AMPICILLIN Q6HR IV TPN Q24HR RUN BOAT OPERATOR MORPHINE SULFATE \: 3E MED SURG UNIT DCP: HOME WHEN STABLE
--- NOTE | 2019-10-26 19:00 | Operative Note - Dictated ---
DATE OF OPERATION: 10/26/2019 SURGEON: Dayron Corbett MD. ADDITIONAL SURGEON: Nixon Alarcon MD. ANESTHESIOLOGIST: Mookie Fried MD. TYPE OF ANESTHESIA: General endotracheal. PREOPERATIVE DIAGNOSES: 1. Malfunctioning Saucedo continent ileostomy with difficulty with intubation and incontinence. 2. History of ulcerative colitis. 3. STATUS POST MULTIPLE ABDOMINAL OPERATIONS: 3.1. Total colectomy with ileoanal J-pouch first in 1989 and then repeated, failed both times. 3.2. Saucedo continent ileostomy in 1994. 3.3. Repair of spontaneous perforation x2 of Saucedo pouch with primary repair in 2009. 3.4. Repair of Saucedo pouch enterocutaneous fistula in 2013. (All of these operations were done elsewhere). POSTOPERATIVE DIAGNOSES: 1. Malfunctioning Saucedo continent ileostomy with difficulty with intubation and incontinence. 2. History of ulcerative colitis. 3. STATUS POST MULTIPLE ABDOMINAL OPERATIONS: 3.1. Total colectomy with ileoanal J-pouch first in 1989 and then repeated, failed both times. 3.2. Saucedo continent ileostomy in 1994. 3.3. Repair of spontaneous perforation x2 of Saucedo pouch with primary repair in 2009. 3.4. Repair of Saucedo pouch enterocutaneous fistula in 2013. (All of these operations were done elsewhere). OPERATION PERFORMED: Laparotomy with revision of Saucedo continent ileostomy nipple valve. DESCRIPTION OF PROCEDURE: The patient was taken to the operating room and under general endotracheal anesthesia with sequential compression device stockings and Simmons catheter in place, and having received preoperative intravenous antibiotics and subcutaneous heparin, the patient was prepped and draped in usual fashion with a Tegaderm placed over the stoma very low in the right lower quadrant. Previous midline incision was reopened from umbilicus to pubis going through a very wide scar. Hemostasis was achieved with cautery. Old Prolene suture removed. There were moderately severe adhesions, but the pouch was able to be elevated out of the pelvis protecting the bladder and ureters. This was facilitated by inserting a 28-[place]an Simmons through the stoma into the pouch. The afferent bowel was identified at its junction with the pouch and manually occluded. The pouch was distended with 400 mL of saline. Upon removing the catheter, there was mild incontinence. The catheter was reintroduced and the pouch decompressed. The pouch enterotomy was created and the nipple valve was grasped with [place] clamps and readily reformed to 5.0 cm. Through a separate pouch enterotomy, the linear stapler 60 green cartridge was placed with the lower blade through the enterotomy and into the lumen of the valve and then the staple fired to staple the valve to the anterior pouch wall. The small enterotomy was closed with continuous full-thickness locking 2-0 chromic followed by imbricating 3-0 silk. I could not place another row of nabila, so I used a horizontal mattress 2-0 Prolene tied on the outside of the pouch to help stabilize the tip of the valve to the anterior pouch wall. The 28-B[place]an Simmons readily went into the pouch through the stoma through the valve segment. Palpating the afferent bowel junction revealed mild stenosis without obstruction. The pouch enterotomy was closed with continuous 2-0 chromic full-thickness locking suture imbricated with 3-0 silk. Now, the afferent bowel was manually occluded again and the pouch distended with 400 mL of saline. Upon removing the catheter, there was no incontinence. The catheter was reintroduced and the pouch decompressed. The pouch was placed back anatomically into the pelvis with the catheter tip at the apex. The catheter was sutured to the skin with two sutures of 2-0 silk and then flushed and connected to a gravity drainage bag. A hypertrophic granulation at the stoma edge was cauterized. Most of the bowel loops had been left undisturbed because of the diffuse adhesions and the absence of obstructive symptoms. There was a periumbilical weakness, but no actual hernia. After ascertaining the hemostasis was secured, the midline incision was closed in one layer with continuous #1 looped PDS. Antibiotic irrigation used and the skin closed with nabila. Dry sterile dressings applied. Final sponge and needle counts were correct. The patient tolerated the procedure well and left the operating room in good condition. Dayron Corbett M.D. DR: PERCY JOB#: [id number] CC: MORENO
[2019-10-26] MEDS: PCA shift volume MISC SCH (19:24)
--- NOTE | 2019-10-26 19:29 | NUR ---
HAND-OFF: Report given to Eleazar RN, pt stable.
--- NOTE | 2019-10-26 19:39 | NUR ---
NURSE NOTES: Pt is in bed, asleep.Respiration 14. No acute distress noted. Ileostomy draining by gravity. Simmons cath draining yellow urine. Pt has MANAGER MARKET morphine for pain control. TPN running at 79ml/hr. Bed locked low in position,side rails up and call light within reach. Pt will be monitored.
[2019-10-26] MEDS: Fat Emulsion Iv 20% 216 ML in Tpn 1,680 ML IV SCH (20:00)
[2019-10-26] MEDS: Dyna-Hex 2% Top Sol 2oz TOPIC SCH (20:00)
--- NOTE | 2019-10-26 20:35 | NUR ---
NURSE NOTES: TRACK WALKER morphine syringe is empty, new syringe placed in the pump.
[2019-10-26] MEDS: LORazepam 1mg tab SL PRN (20:57)
[2019-10-26] MEDS: OLANZapine 10mg tab ORAL SCH (20:57)
--- NOTE | 2019-10-26 21:30 | NUR ---
NURSE NOTES: Pt is complaining of break through pain 01/19. Dr. clay is called and received order for Toradol 15mg IVP q6hrs PRN.
[2019-10-26] MEDS: Ketorolac 30mg Inj IV PRN (21:34)
[2019-10-27] VITALS (12 sets, daily range): BP systolic 96–141; BP diastolic 48–89
--- NOTE | 2019-10-27 | NUR ---
NURSE NOTES: Pt is in bed, asleep. Vitals stable. No pain reported at this time.
[2019-10-27] MEDS: Ampicillin/Sulbactam Sod 3 GM in NS 110 ML IV SCH ×5 (00:12→23:21)
[2019-10-27] MEDS: LORazepam 1mg tab SL PRN ×3 (01:39→15:58)
[2019-10-27] MEDS: Ketorolac 30mg Inj IV PRN ×2 (05:14→20:38)
[2019-10-27 05:29] LABS: BASOPHILS % (AUTO) 1.2 % (0.0-2.0); EOSINOPHILS % (AUTO) 3.5 % (0.0-3.0); HEMATOCRIT 41.9 % (37.0-47.0); LYMPHOCYTES % (AUTO) 3.2 % (20.0-45.0); MEAN CORPUSCULAR VOLUME 91 FL (80-99); MONOCYTES % (AUTO) 10.5 % (1.0-10.0); NEUTROPHILS % (AUTO) 81.6 % (45.0-75.0); PLATELET COUNT 269 K/UL (150-450); RED BLOOD COUNT 4.58 M/UL (4.20-5.40); RED CELL DISTRIBUTION WIDTH 15.5 % (11.6-14.8); WHITE BLOOD COUNT 10.5 K/UL (4.8-10.8)
[2019-10-27] MEDS: NovoLOG Insulin Flexpen SUBQ SCH ×5 (05:52→23:24)
[2019-10-27 05:56] LABS: ALANINE AMINOTRANSFERASE 31 U/L (12-78); ALBUMIN 2.7 G/DL (3.4-5.0); ALBUMIN/GLOBULIN RATIO 0.7 (1.0-2.7); ALKALINE PHOSPHATASE 72 U/L (46-116); ANION GAP 7 mmol/L (5-15); ASPARTATE AMINO TRANSFERASE 25 U/L (15-37); BILIRUBIN,TOTAL 0.5 MG/DL (0.2-1.0); BLOOD UREA NITROGEN 18 mg/dL (7-18); CALCIUM 8.3 MG/DL (8.5-10.1); CARBON DIOXIDE 28 MMOL/L (21-32); CHLORIDE 100 MMOL/L (98-107); CREATININE 0.8 MG/DL (0.55-1.30); PHOSPHORUS 3.9 MG/DL (2.5-4.9); POTASSIUM 3.8 MMOL/L (3.5-5.1); SODIUM 135 MMOL/L (136-145)
--- NOTE | 2019-10-27 06:10 | NUR ---
HAND-OFF: Report given to MARIANO Lopez.Pt is awake and alert, vitals stable.
--- NOTE | 2019-10-27 06:35 | NUR ---
NURSE NOTES: Pt slept well overnight. Ileostomy output during this shift is 60ml. Urine output is 630ml during this shift.Pt is able to seat up in bed. Pt encouraged to use incentive spherometer.
--- NOTE | 2019-10-27 07:02 | 48 Hour Post Anesthesia Eval ---
Post Anesthesia Evaluation Procedure: Exploratory laparotomy, revision of continent pouch Date of Evaluation: Oct 27, 2019 Time of Evaluation: 07:01 Blood Pressure Systolic: 111 0: 67 Pulse Rate: 94 Respiratory Rate: 16 Temperature (Fahrenheit): 98.2 O2 Sat by Pulse Oximetry: 98 Airway: patent Nausea: No Vomiting: No Pain Intensity: 3 Hydration Status: adequate Cardiopulmonary Status: Stable Mental Status/LOC: patient returned to baseline Follow-up Care/Observations: 0 Post-Anesthesia Complications: 0 Follow-up care needed: N/A Bernardino Castellon MD Oct 27, 2019 07:02
[2019-10-27] MEDS: PCA shift volume MISC SCH ×2 (07:12→18:59)
--- NOTE | 2019-10-27 07:35 | NUR ---
NURSE NOTES: WALKING ROUNDS DONE WITH NIGHT RN. PATIENT AWAKE IN BED. ILEOSTOMY, PICC LINE PATENT AND SECURED. TPN INFUSING, RIP TAILER SETTINGS VERIFIED AGAINST MD ORDERS. QUESTIONS ANSWERED NEEDS MET AT THIS TIME. DISCUSSED PLAN OF CARE FOR THE DAY. VERBALIZED UNDERSTANDING. BED IN LOW AND LOCKED POSITION.
[2019-10-27] MEDS ORDERED: Naloxone 0.4mg/ml Inj IVP PRN (08:17)
--- NOTE | 2019-10-27 08:25 | General Progress Note ---
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
[2019-10-27] MEDS ORDERED: Rate Change PCA 1 Each MISC PRN (08:30)
[2019-10-27] MEDS: PCA Morphine 1mg/ml 30 ML IV PRN ×2 (08:46→18:17)
[2019-10-27] MEDS ORDERED: DiphenhydrAMINE 50mg/ml Inj IVP PRN (10:30)
--- NOTE | 2019-10-27 13:23 | NUR ---
*-* INSURANCE *-* UPDATED CLINICALS AND REVIEWS HAVE BEEN FAXED TO: [facility] AUTH#[id number] P:[phone] F:[phone]
--- NOTE | 2019-10-27 16:14 | NUR ---
CASE MANAGEMENT: REVIEW 10/27/19 SI: S/P LAPAROTOMY REVISION OF HENNING POUCH S/P POUCH ENDOSCOPY MALFUNCTION HENNING POUCH WITH DIFFICULTY INTUBATING AND INCONTINENCE ABDOMINAL PAIN . GASTROENTEROLOGY F/U . ANEMIA . HYPONATREMIA . HYPOMAGNESEMIA 98.3 81 18 141/89 95% ON RA BG 148 CA+ 8.3 MG 1.8 ALB 2.7 IS:IV MG SULFATE X4 BAGS IV AMPICILLIN Q6HR IV FLAGYL Q6HR IV AMPICILLIN Q6HR IV TPN Q24HR FIORICET Q6HR/PRN SALES PROCESS MANAGER MORPHINE SULFATE IV TORADOL Q6HR/PRN \: 3E MED SURG UNIT DCP: HOME WHEN STABLE PLAN: CONT NPO + TPN MG INFUSION ENCOURAGE AMBULATION
--- NOTE | 2019-10-27 16:30 | NUR ---
NURSE NOTES: PATIENT REMAINS STABLE. REQUIRING ZOFRAN FOR NAUSEA. PAIN CONTROLLED. ATTEMPTED TO WALK PATIENT BUT UNABLE TO. STATES SHE WAS DIZZY. ABLE TO SIT IN THE CHAIR APPROXIMATELY 20 MINS. STATES SHE WILL TRY TOMORROW.
--- NOTE | 2019-10-27 19:12 | NUR ---
HAND-OFF: Report given to CARLOS HUBER RN.
--- NOTE | 2019-10-27 19:17 | NUR ---
NURSE NOTES: Received patient comfortably sleeping, no shortness of breath noted, bed in lowest position and locked.
[2019-10-27] MEDS: Fat Emulsion Iv 20% 216 ML in Tpn 1,680 ML IV SCH (20:00)
[2019-10-27] MEDS: Dyna-Hex 2% Top Sol 2oz TOPIC SCH (20:00)
[2019-10-27] MEDS: OLANZapine 10mg tab ORAL SCH (20:01)
[2019-10-28] VITALS (8 sets, daily range): BP systolic 105–133; BP diastolic 46–65
[2019-10-28] MEDS: Ketorolac 30mg Inj IV PRN ×3 (04:57→21:10)
[2019-10-28] MEDS: PCA Morphine 1mg/ml 30 ML IV PRN (05:35)
[2019-10-28] MEDS: NovoLOG Insulin Flexpen SUBQ SCH ×4 (06:00→23:16)
[2019-10-28] MEDS: Ampicillin/Sulbactam Sod 3 GM in NS 110 ML IV SCH ×3 (06:01→17:57)
--- NOTE | 2019-10-28 06:20 | NUR ---
NURSE NOTES: Patient slept well and said that the Toradol 15 mg ivp for breakthrough pain worked really well. Drained 650 ml of yellow color clear urine from her indwelling maravilla catheter and drained 170 ml of greenish liquid with particulates from her ileostomy.
[2019-10-28 06:36] LABS: BASOPHILS % (AUTO) 1.1 % (0.0-2.0); EOSINOPHILS % (AUTO) 7.4 % (0.0-3.0); HEMATOCRIT 34.3 % (37.0-47.0); HEMOGLOBIN 10.7 G/DL (12.0-16.0); LYMPHOCYTES % (AUTO) 9.9 % (20.0-45.0); MEAN CORPUSCULAR VOLUME 91 FL (80-99); MONOCYTES % (AUTO) 13.3 % (1.0-10.0); NEUTROPHILS % (AUTO) 68.2 % (45.0-75.0); PLATELET COUNT 242 K/UL (150-450); RED BLOOD COUNT 3.75 M/UL (4.20-5.40); RED CELL DISTRIBUTION WIDTH 15.7 % (11.6-14.8); WHITE BLOOD COUNT 8.1 K/UL (4.8-10.8)
[2019-10-28 06:47] LABS: ALANINE AMINOTRANSFERASE 23 U/L (12-78); ALBUMIN 2.2 G/DL (3.4-5.0); ALBUMIN/GLOBULIN RATIO 0.6 (1.0-2.7); ALKALINE PHOSPHATASE 61 U/L (46-116); ANION GAP 7 mmol/L (5-15); ASPARTATE AMINO TRANSFERASE 21 U/L (15-37); BILIRUBIN,TOTAL 0.4 MG/DL (0.2-1.0); BLOOD UREA NITROGEN 18 mg/dL (7-18); CALCIUM 8.1 MG/DL (8.5-10.1); CARBON DIOXIDE 28 MMOL/L (21-32); CHLORIDE 101 MMOL/L (98-107); CREATININE 0.8 MG/DL (0.55-1.30); POTASSIUM 3.4 MMOL/L (3.5-5.1); SODIUM 135 MMOL/L (136-145)
[2019-10-28] MEDS: PCA shift volume MISC SCH ×2 (07:27→19:05)
--- NOTE | 2019-10-28 07:29 | NUR ---
HAND-OFF: Report given to MARIANO Ernst.
--- NOTE | 2019-10-28 07:35 | NUR ---
NURSE NOTES: WALKING ROUNDS DONE WITH NIGHT RN. PATIENT AWAKE IN BED. QUESTIONS ANSWERED NEEDS MET AT THIS TIME. DISCUSSED PLAN OF CARE FOR THE DAY. PICC LINE , ILEOSTOMY PATENT AND SECURED AND DRAINING WELL. ELECTION ASSISTANT SETTINGS VERIFIED AGAINST MD ORDER. PATIENT STETS PAIN IMPROVING WIT TORADOL B/T ALONG WITH ELECTION ASSISTANT. BED IN LOW AND LOCKED POSITION. CALL LIGHT WITHIN REACH.
[2019-10-28] MEDS ORDERED: Rate Change PCA 1 Each MISC PRN (08:00)
--- NOTE | 2019-10-28 08:01 | General Progress Note ---
Progress Note Progress Note AVSS Got out of bed yesterday Abdomen soft, mild distention, incision clean Urine 1250 BCIR ileo 340 enteric WBC 8100 Hgb down 10.7 Albumin 2.2 Imp: Stable with ileus Plan: continue npo, TPN, Simmons f/u labs Dayron Corbett MD Oct 28, 2019 08:01
[2019-10-28] MEDS ORDERED: PCA Morphine 1mg/ml 30 ML IV PRN ×2 (08:03→16:23)
[2019-10-28] MEDS ORDERED: Naloxone 0.4mg/ml Inj IVP PRN (08:03)
[2019-10-28] MEDS ORDERED: DiphenhydrAMINE 50mg/ml Inj IVP PRN (08:03)
[2019-10-28] MEDS: D5 1/4NS w/KCl 20mEq 1,000 ML IV SCH (08:54)
[2019-10-28] MEDS: LORazepam 1mg tab SL PRN (08:54)
--- NOTE | 2019-10-28 09:20 | NUR ---
NURSE NOTES: C/O PRURITUS UNDERNEATH PICC LINE DRSG. NOTED REDNESS TO LEFT SIDE OF DRSG. CHANGED DRSG WITH NEW STAT LOCK AND SECURED WITH ONE STRIP EACH SIDE OF THE STAT LOCK AND COVERED WITH MED PORE TAPE. STERILE TECHNIQUE MAINTAINED. PATIENT TOLERATED DRSG WELL. INFORMED DR. JOSUE.
--- NOTE | 2019-10-28 10:52 | NUR ---
*-* INSURANCE *-* UPDATED CLINICALS AND REVIEWS HAVE BEEN FAXED TO: [facility] AUTH#[id number] P:[phone] F:[phone]
--- NOTE | 2019-10-28 11:43 | NUR ---
CASE MANAGEMENT: REVIEW 10/28/19 SI: S/P LAPAROTOMY REVISION OF HENNING POUCH S/P POUCH ENDOSCOPY MALFUNCTION HENNING POUCH WITH DIFFICULTY INTUBATING AND INCONTINENCE ABDOMINAL PAIN . GASTROENTEROLOGY F/U . ANEMIA . HYPONATREMIA . HYPOMAGNESEMIA 98.2 81 20 117/47 97% ON RA k+3.4 bg 117 ca+8.1 ALB 2.2 IS:IV D5@ 50ML/HR IV AMPICILLIN Q6HR IV FLAGYL Q6HR IV AMPICILLIN Q6HR IV TPN Q24HR FIORICET Q6HR/PRN MAINTENANCE SUPERVISOR MECHANICAL MORPHINE SULFATE IV TORADOL Q6HR/PRN \: 3E MED SURG UNIT DCP: HOME WHEN STABLE PLAN: CONT NPO + TPN ENCOURAGE AMBULATION AM LABS
--- NOTE | 2019-10-28 13:00 | NUR ---
NURSE NOTES: OFFERED TO AMBULATE PATIENT BUT REFUSED AT THIS TIME. WILL TRY LATER. BED IN LOW AND LOCKED POSITION. CALL LIGHT WITHIN REACH.
--- NOTE | 2019-10-28 18:53 | NUR ---
NURSE NOTES: PER MD ORDER DC'D MORPHINE BASAL. DOCTOR OF RADIOLOGY ONLY. PATIENT STATES SHE WILL GET OOB TOMORROW AND BE MORE ACTIVE. STATED SHE WAS TRIED AND WAS DIZZY WHEN SHE TRIED YESTERDAY. DISCUSSED BENEFITS AND RISK FACTORS INVOLVED AFTER SURGERY IF NOT AMBULATING AND BEING MORE ACTIVE. VERBALIZED UNDERSTANDING. STATES PAIN MORE MANAGED WITH TORADOL GIVEN A BREAKTHROUGH.
--- NOTE | 2019-10-28 19:09 | NUR ---
HAND-OFF: Report given to Trish Rollins RN.
--- NOTE | 2019-10-28 19:15 | NUR ---
NURSE NOTES: Received patient on bed, awake and verbally responsive. on room air. no sob. with picc line on the left upper arm double lumen. with maravilla catheter draining well. noted with ileo draining a dark green output. npo except ice chips and meds. with french binding folder morphine. with dry and intact dressing on the abdomen. per jeremiah" the picc line dressing was changed today". bed locked and in lowest position. call light and light button within easy reach. will continue plan of care
[2019-10-28] MEDS: OLANZapine 10mg tab ORAL SCH (20:13)
[2019-10-28] MEDS: Dyna-Hex 2% Top Sol 2oz TOPIC SCH (20:13)
[2019-10-28] MEDS: Fat Emulsion Iv 20% 216 ML in Tpn 1,680 ML IV SCH (20:14)
--- NOTE | 2019-10-28 21:10 | NUR ---
NURSE NOTES: patient still complaints of pain on the abdomen and wants to take toradol. toradol given as ordered for breakthrough pain. flushed as ordered. charge nurse made aware.
[2019-10-29] VITALS (12 sets, daily range): BP systolic 121–166; BP diastolic 70–88
[2019-10-29] MEDS: Ampicillin/Sulbactam Sod 3 GM in NS 110 ML IV SCH ×4 (00:06→18:07)
--- NOTE | 2019-10-29 01:11 | NUR ---
NURSE NOTES: Patient is sleeping comfortably on bed. provided rest and comfort. call light and light button within easy reach. bed locked and in lowest position.
--- NOTE | 2019-10-29 04:30 | NUR ---
NURSE NOTES: PATIENT STILL COMPLAINTS OF PAIN. TORADOL GIVEN. PER PATIENT "IT HELPS TO EASE THE PAIN".
[2019-10-29] MEDS: Ketorolac 30mg Inj IV PRN ×2 (04:37→20:21)
[2019-10-29] MEDS: D5 1/4NS w/KCl 20mEq 1,000 ML IV SCH (04:47)
--- NOTE | 2019-10-29 05:00 | NUR ---
NURSE NOTES: PATIENT COMPLAINTS OF NAUSEA. HEAD OF BED ELEVATED. ADMINISTERED ZOFRAN ORDERED. CHARGE NURSE MADE AWARE.
[2019-10-29] MEDS: NovoLOG Insulin Flexpen SUBQ SCH ×3 (05:55→17:04)
[2019-10-29 05:57] LABS: EOSINOPHILS % (AUTO) 8.9 % (0.0-3.0); HEMATOCRIT 27.3 % (37.0-47.0); HEMOGLOBIN 9.2 G/DL (12.0-16.0); LYMPHOCYTES % (AUTO) 11.7 % (20.0-45.0); MEAN CORPUSCULAR VOLUME 92 FL (80-99); MONOCYTES % (AUTO) 11.3 % (1.0-10.0); NEUTROPHILS % (AUTO) 66.1 % (45.0-75.0); PLATELET COUNT 324 K/UL (150-450); RED BLOOD COUNT 2.98 M/UL (4.20-5.40)
[2019-10-29 06:26] LABS: ALANINE AMINOTRANSFERASE 22 U/L (12-78); ALBUMIN 2.2 G/DL (3.4-5.0); ALBUMIN/GLOBULIN RATIO 0.6 (1.0-2.7); ALKALINE PHOSPHATASE 73 U/L (46-116); ANION GAP 6 mmol/L (5-15); ASPARTATE AMINO TRANSFERASE 20 U/L (15-37); BILIRUBIN,TOTAL 0.3 MG/DL (0.2-1.0); BLOOD UREA NITROGEN 13 mg/dL (7-18); CALCIUM 8.3 MG/DL (8.5-10.1); CARBON DIOXIDE 27 MMOL/L (21-32); CHLORIDE 103 MMOL/L (98-107); CREATININE 0.8 MG/DL (0.55-1.30); POTASSIUM 3.6 MMOL/L (3.5-5.1); SODIUM 136 MMOL/L (136-145)
--- NOTE | 2019-10-29 06:30 | NUR ---
NURSE NOTES: URINE OUTPUT: 1650 ML ILEO OUTPUT: 350ML TRUE ILEO OUTPUT: 270
[2019-10-29] MEDS: PCA shift volume MISC SCH ×2 (07:04→19:11)
[2019-10-29] MEDS: LORazepam 1mg tab SL PRN ×2 (07:27→17:13)
--- NOTE | 2019-10-29 07:30 | NUR ---
HAND-OFF: Report given to diana moore.patient is awake. room air. no sob. call light and light button within easy reach. plan of care endorsed
--- NOTE | 2019-10-29 07:36 | NUR ---
nurse notes received patient in bed, patient awake, alert oriented x4, no sign of distress, on RA, ON TPN, lipid and TUNNEL KILN FIRER morphine on going via PICC line double lumen, ileostomy and maravilla cath to gravity, patient c/o mild muscle spasm ativan given as ordered, encouraged patient to verbalized her feeling, plan of care was discussed needs reinforcement, will continue to monitor patient condition diana jameson
--- NOTE | 2019-10-29 12:10 | NUR ---
*-* INSURANCE *-* UPDATED CLINICALS AND REVIEWS HAVE BEEN FAXED TO: [facility] AUTH#[id number] P:[phone] F:[phone]
[2019-10-29] MEDS ORDERED: PCA Morphine 1mg/ml 30 ML IV PRN (12:15)
[2019-10-29] MEDS ORDERED: D5 1/4NS w/KCl 20mEq 1,000 ML IV SCH (12:15)
[2019-10-29] MEDS ORDERED: Rate Change PCA 1 Each MISC PRN ×2 (12:15→12:30)
[2019-10-29] MEDS ORDERED: PCA HYDROmorphone 30mg/30ml Syr IV PRN (12:21)
--- NOTE | 2019-10-29 12:23 | General Progress Note ---
Progress Note Progress Note c/o dizziness so refusing to ambulate since surgery. Stopped using forex trader so BP and P are elevated from pain. Abdomen mildly distended, soft, incision clean, stoma pink Urine 2150 BCIR ileo 660 WBC 7000 Hgb down 9.2 albumin 2.2 Imp: Ileus Dizziness ? due to Morphine forex trader Plan: continue npo, TPN, maravilla change Morphine forex trader to Dilaudid demand dosing only PT mobility protocol f/u labs Dayron Corbett MD Oct 29, 2019 12:23
--- NOTE | 2019-10-29 12:45 | NUR ---
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 PO DIET RECOMMENDATIONS: Per MD PARENTERAL NUTRITION RECOMMENDATIONS: D/AA Rate: 70 IL Rate: 9 Total Rate: 79 Volume: 1896 % Dextrose: 20 % AA: 5.4 Energy (kcals/kg): 1937 Protein (g/kg protein): 91 Nonprotein KCALS: 1574 GIR (mg CHO/kg/min): 3.1 % Fat KCALS: 22 NPC: N Ratio: 109:1 TPN Comment: - Rec D20% w/ 5.4% AA @70 w/ IL 20% @9ML/HR, all 3:1 - Meets 100% est needs at goal, provides 26kcal/kg and 1.2g/kg pro, - IL <30%, GIR <5 ADDITIONAL RECOMMENDATIONS: 1) Obtain a standing weight as able 2) Monitor lytes, BG, LFt's w/ TPN w/ need for formulary modifications
--- NOTE | 2019-10-29 14:20 | NUR ---
PT EVALUATION NOTE Patient seen for initial evaluation and treatment initiated. Patient presents with generalized weakness, abdominal pain and dizziness which impairs patient's ability to perform functional mobility safely. Patient able to come to sitting at the EOB with supervision/SBA however patient unable to stand or ambulate due to c/o dizziness. Patient will benefit from skilled inpatient PT intervention to address strength and balance for improved level of functional mobility. Anticipate discharge home once medically cleared by MD. No DME needs anticipated at this time. Addendum: 10/29/19 at 1421 by LISA SANDY PT Amended: Links added.
--- NOTE | 2019-10-29 16:28 | NUR ---
CASE MANAGEMENT: REVIEW 10/29/19 SI: S/P LAPAROTOMY REVISION OF HENNING POUCH S/P POUCH ENDOSCOPY MALFUNCTION HENNING POUCH WITH DIFFICULTY INTUBATING AND INCONTINENCE ABDOMINAL PAIN . GASTROENTEROLOGY F/U . ANEMIA . HYPONATREMIA . HYPOMAGNESEMIA 98.6 108 160/87 96% ON RA H/H 9.2/27.3 BG 136 CA+8.3 ALB 2.2 IS:IV D5@ 20ML/HR IV AMPICILLIN Q6HR IV FLAGYL Q6HR IV AMPICILLIN Q6HR IV TPN Q24HR FIORICET Q6HR/PRN SENIOR DIRECTOR OF STRATEGY DILAUDID QD \: 3E MED SURG UNIT DCP: HOME WHEN STABLE PLAN: CONT NPO + TPN PT EVAL AND THERAPY RECOMMENDATION
[2019-10-29] MEDS ORDERED: PCA shift volume MISC SCH (19:00)
--- NOTE | 2019-10-29 20:04 | NUR ---
NURSE NOTES: Pt. received from MARIANO Tobias. Pt. AAOx4, on room air, no indications of respiratory distress, complaints of pain tolerated by MARINE PIPEFITTER. PICC noted left upper arm, with TPN at 79cc/hr and D5 1/4 with 20 KCl running at 20cc/hr. Abdominal dressing noted clean dry and intact. Bed is low and locked, side rails x2 up, and call light in reach.
[2019-10-29] MEDS: Dyna-Hex 2% Top Sol 2oz TOPIC SCH (20:21)
[2019-10-29] MEDS: OLANZapine 10mg tab ORAL SCH (20:21)
[2019-10-29] MEDS: Fat Emulsion Iv 20% 216 ML in Tpn 1,680 ML IV SCH (20:33)
--- NOTE | 2019-10-29 22:30 | NUR ---
NURSE NOTES: Pt. up and ambulating down hallway x1. Pt. steady with complaints of slight dizziness. Pt. tolerated well.
[2019-10-30] VITALS: BP 154/78
[2019-10-30] MEDS: Ampicillin/Sulbactam Sod 3 GM in NS 110 ML IV SCH ×4 (00:11→18:29)
[2019-10-30] MEDS: Ketorolac 30mg Inj IV PRN ×3 (02:40→14:55)
[2019-10-30 04:00] VITALS: BP 159/81
[2019-10-30] MEDS: NovoLOG Insulin Flexpen SUBQ SCH ×4 (06:00→18:00)
[2019-10-30 06:02] LABS: BASOPHILS % (AUTO) 1.6 % (0.0-2.0); EOSINOPHILS % (AUTO) 8.7 % (0.0-3.0); HEMATOCRIT 34.2 % (37.0-47.0); HEMOGLOBIN 10.7 G/DL (12.0-16.0); LYMPHOCYTES % (AUTO) 10.9 % (20.0-45.0); MEAN CORPUSCULAR VOLUME 89 FL (80-99); NEUTROPHILS % (AUTO) 65.8 % (45.0-75.0); PLATELET COUNT 326 K/UL (150-450); RED BLOOD COUNT 3.82 M/UL (4.20-5.40); RED CELL DISTRIBUTION WIDTH 15.3 % (11.6-14.8); WHITE BLOOD COUNT 5.9 K/UL (4.8-10.8)
[2019-10-30 06:29] LABS: ALANINE AMINOTRANSFERASE 16 U/L (12-78); ALBUMIN 2.5 G/DL (3.4-5.0); ALBUMIN/GLOBULIN RATIO 0.5 (1.0-2.7); ALKALINE PHOSPHATASE 96 U/L (46-116); ANION GAP 9 mmol/L (5-15); ASPARTATE AMINO TRANSFERASE 18 U/L (15-37); BILIRUBIN,TOTAL 0.3 MG/DL (0.2-1.0); BLOOD UREA NITROGEN 10 mg/dL (7-18); CALCIUM 8.6 MG/DL (8.5-10.1); CARBON DIOXIDE 26 MMOL/L (21-32); CHLORIDE 104 MMOL/L (98-107); CREATININE 0.8 MG/DL (0.55-1.30); POTASSIUM 3.2 MMOL/L (3.5-5.1); SODIUM 139 MMOL/L (136-145)
[2019-10-30] MEDS: PCA shift volume MISC SCH (07:00)
--- NOTE | 2019-10-30 07:30 | NUR ---
NURSE NOTES: Patient is in bed awake and able to verbalize needs. Stable. Patient instructed to use MOSAIC LAYER for pain management but states that the dilaudid makes her feel nauseated. Ileo to drainage bag, will flush and monitor output. f/c patent and draining light james urine. PICC patent and running IVF, MOSAIC LAYER, and TPN as ordered. All needs met at this time. Patient is in bed in locked and lowest position with call light within reach. Will continue to monitor.
--- NOTE | 2019-10-30 07:33 | NUR ---
HAND-OFF: Report given to MARIANO Hillman. True Ileo: 270cc urine: 1870cc
[2019-10-30 08:00] VITALS: BP 167/73
[2019-10-30] MEDS: LORazepam 1mg tab SL PRN (08:33)
--- NOTE | 2019-10-30 09:00 | NUR ---
NURSE NOTES: COMMUNICATIONS PROGRAMMER dilaudid discontinued. Wasted 23.3 mL dilaudid with Marybel pharmacist.
--- NOTE | 2019-10-30 09:15 | NUR ---
NURSE NOTES: Elevated BP reported to Dr. Corbett, will continue to monitor patient as directed.
--- NOTE | 2019-10-30 09:24 | General Progress Note ---
Progress Note Progress Note AVSS Ambulated yesterday with mild dizziness c/o nausea with dilaudid marine architect demand dosing only. Has zofran and compazine - cannot use Reglan with her zyprexa Abdomen soft, less distended, incision clean, stoma pink Urine 4022 BCIR ileo 540 Hgb up 10.7 K 3.2 Mg 1.5 albumin 2.5 (up) Imp: slowly resolving ileus Plan; continue npo, TPN, maravilla d/c marine architect and Flagyl Mg infusion; f/u labs Dayron Corbett MD Oct 30, 2019 09:24
[2019-10-30] MEDS ORDERED: LORazepam 1mg tab ORAL SCH (10:00)
[2019-10-30] MEDS: D5 1/2NS w/KCl 40meq 1000ml 1,000 ML IV SCH (10:38)
--- NOTE | 2019-10-30 11:21 | NUR ---
NURSE NOTES: Pt ambulating with physical therapy.
--- NOTE | 2019-10-30 11:22 | NUR ---
NURSE NOTES: Patient c/o nausea and pain. Medication administration schedule discussed with patient. BP is elevated, pt is asymptomatic, will continue to monitor.
[2019-10-30 12:00] VITALS: BP 160/95
[2019-10-30 16:00] VITALS: BP 132/85
[2019-10-30] MEDS: oxyCODONE HCL/Acetaminophen 5/325mg ORAL PRN (16:05)
--- NOTE | 2019-10-30 16:14 | NUR ---
CASE MANAGEMENT: REVIEW 10/30/19 SI: S/P LAPAROTOMY REVISION OF HENNING POUCH S/P POUCH ENDOSCOPY MALFUNCTION HENNING POUCH WITH DIFFICULTY INTUBATING AND INCONTINENCE ABDOMINAL PAIN . GASTROENTEROLOGY F/U . ANEMIA . HYPONATREMIA . HYPOMAGNESEMIA 98.2 105 21 160/95 97% ON RA K+3.2 BG 132 MG 1.5 ALB 2.5 IS:IV D5@ 50ML/HR IV AMPICILLIN Q6HR IV TPN Q24HR FIORICET Q6HR/PRN \: 3E MED SURG UNIT DCP: HOME WHEN STABLE PLAN: CONT NPO + TPN DC DAMAGE PREVENTION COORDINATOR AND FLAGYL MG INFUSION AM LABS
[2019-10-30] MEDS: LORazepam 1mg tab ORAL SCH (18:29)
--- NOTE | 2019-10-30 18:30 | NUR ---
NURSE NOTES: Patient ambulated around unit with RN standing by for assistance.
--- NOTE | 2019-10-30 19:11 | NUR ---
NURSE NOTES: True ileo: 170cc brown liquid output. UO: 2800cc james urine output. f/c patent and kept clean. Patient had nausea throughout shift, medication given as ordered. Pain is well managed with percocet.
--- NOTE | 2019-10-30 19:32 | NUR ---
HAND-OFF: Report given to Zahra QUINTANA. Patient is stable.
--- NOTE | 2019-10-30 19:40 | NUR ---
NURSE NOTES: Patient in bed resting. ANOx4. Ileo in place and connected to drainage bag. Simmons patent and draining to gravity. PICC patent and running IVF and TPN as ordered. Bed locked and lowest position with call light within reach. Will continue to monitor.
[2019-10-30 20:00] VITALS: BP 167/87
[2019-10-30] MEDS: Dyna-Hex 2% Top Sol 2oz TOPIC SCH (20:19)
[2019-10-30] MEDS: OLANZapine 10mg tab ORAL SCH (20:19)
[2019-10-30] MEDS: Fat Emulsion Iv 20% 216 ML in Tpn 1,680 ML IV SCH (20:34)
[2019-10-31] MEDS: Ampicillin/Sulbactam Sod 3 GM in NS 110 ML IV SCH ×2 (00:06→05:57)
[2019-10-31] MEDS: oxyCODONE HCL/Acetaminophen 5/325mg ORAL PRN ×5 (01:13→23:08)
[2019-10-31] MEDS: Ketorolac 30mg Inj IV PRN ×2 (02:39→16:41)
[2019-10-31 03:35] VITALS: BP 164/88
[2019-10-31 05:36] LABS: BASOPHILS % (AUTO) 1.7 % (0.0-2.0); EOSINOPHILS % (AUTO) 8.2 % (0.0-3.0); HEMATOCRIT 36.8 % (37.0-47.0); HEMOGLOBIN 11.6 G/DL (12.0-16.0); LYMPHOCYTES % (AUTO) 12.3 % (20.0-45.0); MEAN CORPUSCULAR VOLUME 89 FL (80-99); MONOCYTES % (AUTO) 10.6 % (1.0-10.0); NEUTROPHILS % (AUTO) 67.3 % (45.0-75.0); PLATELET COUNT 372 K/UL (150-450); RED BLOOD COUNT 4.15 M/UL (4.20-5.40); RED CELL DISTRIBUTION WIDTH 14.8 % (11.6-14.8)
[2019-10-31] MEDS: D5 1/2NS w/KCl 40meq 1000ml 1,000 ML IV SCH (05:57)
[2019-10-31 05:58] LABS: ALANINE AMINOTRANSFERASE 19 U/L (12-78); ALBUMIN 2.6 G/DL (3.4-5.0); ALBUMIN/GLOBULIN RATIO 0.5 (1.0-2.7); ALKALINE PHOSPHATASE 122 U/L (46-116); ANION GAP 10 mmol/L (5-15); ASPARTATE AMINO TRANSFERASE 17 U/L (15-37); BILIRUBIN,TOTAL 0.3 MG/DL (0.2-1.0); BLOOD UREA NITROGEN 8 mg/dL (7-18); CALCIUM 8.5 MG/DL (8.5-10.1); CARBON DIOXIDE 25 MMOL/L (21-32); CHLORIDE 102 MMOL/L (98-107); CREATININE 0.8 MG/DL (0.55-1.30); PHOSPHORUS 2.9 MG/DL (2.5-4.9); POTASSIUM 3.4 MMOL/L (3.5-5.1); SODIUM 136 MMOL/L (136-145)
[2019-10-31] MEDS: NovoLOG Insulin Flexpen SUBQ SCH ×5 (06:23→23:58)
--- NOTE | 2019-10-31 06:40 | NUR ---
NURSE NOTES: Patient feeling nauseous this morning. Administered Zofran and Compazine PRN
--- NOTE | 2019-10-31 06:48 | NUR ---
NURSE NOTES: Ileo (true output): 270 mL Urine output: 2250 mL
--- NOTE | 2019-10-31 07:30 | NUR ---
NURSE NOTES: Patient is in bed awake and able to verbalize needs. Stable. Denies pain but c/o severe nausea. Patient offered zofran but refused because she says it does not help. Ileo to drainage bag, will flush and monitor output. F/c patent and draining james urine. PICC patent and running TPN and IVF as ordered. All needs met at this time. Will continue to monitor.
--- NOTE | 2019-10-31 07:32 | NUR ---
HAND-OFF: Report given to MARIANO Hillman.
[2019-10-31 08:00] VITALS: BP 163/103
[2019-10-31] MEDS: LORazepam 1mg tab ORAL SCH ×2 (08:02→17:31)
--- NOTE | 2019-10-31 08:30 | NUR ---
NURSE NOTES: F/C removed as ordered. BSC at bedside. Patient instructed to call RN for assistance.
--- NOTE | 2019-10-31 08:30 | NUR ---
NURSE NOTES: IVF d/c as ordered. New orders for Magnesium IVPB noted and carried out.
--- NOTE | 2019-10-31 08:34 | General Progress Note ---
Progress Note Progress Note AVSS Ambulating in hallways, still c/o nausea. REFINERY PIPELINE OPERATOR was d/c'd and now on Percocet prn Abdomen soft, healing nicely Urine 5050 BCIR ileo 440 WBC 8000 Hgb up 11.6 K up 3.4 Mg 1.7 albumin 2.6 Imp: Ileus resolved Plan; clear liquid diet; d/c IV fluids; continue TPN remove urinary Simmons d/c antibiotics Dayron Corbett MD Oct 31, 2019 08:34
--- NOTE | 2019-10-31 11:30 | NUR ---
NURSE NOTES: Patient voided x1 in bedside commode. no c/o burning or discomfort. 500cc james urine output noted. Patient able to transfer independently from bed to bedside commode. Will continue to monitor.
[2019-10-31 12:00] VITALS: BP 185/101
[2019-10-31 13:00] VITALS: BP 177/113
[2019-10-31] MEDS: Captopril 12.5mg tab SL PRN (14:51)
[2019-10-31 16:00] VITALS: BP 154/87
--- NOTE | 2019-10-31 17:52 | NUR ---
NURSE NOTES: Patient ambulated around unit with RN.
--- NOTE | 2019-10-31 19:03 | NUR ---
NURSE NOTES: True ileo: 745 brown liquid output. UO: 2850cc james urine output. Patient able to void in bedside commode. No c/o burning or discomfort. Patient able to ambulate with RN assistance. Patient c/o pain at different times throughout shift. Pain medication administered as ordered.
--- NOTE | 2019-10-31 19:35 | NUR ---
HAND-OFF: Report given to Devon QUINTANA. Patient is stable.
--- NOTE | 2019-10-31 19:45 | NUR ---
NURSE NOTES: Pt. received from MARIANO Hillman. Pt. AAOx4, on room air, breathing is even and unlabored, no complaints of pain, noted to have dizziness, tolerable. PICC left upper arm with TPN running. Ileo intact and draining well. Bed is low and locked, side rails x2 up, and call light in reach.
[2019-10-31 20:00] VITALS: BP 121/81
[2019-10-31] MEDS: OLANZapine 10mg tab ORAL SCH (20:14)
[2019-10-31] MEDS: Dyna-Hex 2% Top Sol 2oz TOPIC SCH (20:14)
[2019-10-31] MEDS: Fat Emulsion Iv 20% 216 ML in Tpn 1,680 ML IV SCH (20:15)
[2019-11-01] VITALS: BP 156/90
[2019-11-01] MEDS: oxyCODONE HCL/Acetaminophen 5/325mg ORAL PRN ×5 (03:09→21:32)
[2019-11-01 04:00] VITALS: BP 139/86
[2019-11-01] MEDS: NovoLOG Insulin Flexpen SUBQ SCH ×4 (06:00→23:35)
[2019-11-01 07:17] LABS: BASOPHILS % (AUTO) 1.7 % (0.0-2.0); EOSINOPHILS % (AUTO) 8.5 % (0.0-3.0); HEMATOCRIT 39.7 % (37.0-47.0); HEMOGLOBIN 12.6 G/DL (12.0-16.0); LYMPHOCYTES % (AUTO) 14.3 % (20.0-45.0); MEAN CORPUSCULAR VOLUME 89 FL (80-99); NEUTROPHILS % (AUTO) 62.6 % (45.0-75.0); PLATELET COUNT 456 K/UL (150-450); RED BLOOD COUNT 4.48 M/UL (4.20-5.40); WHITE BLOOD COUNT 9.2 K/UL (4.8-10.8)
[2019-11-01 07:20] LABS: ALANINE AMINOTRANSFERASE 27 U/L (12-78); ALBUMIN 2.8 G/DL (3.4-5.0); ALBUMIN/GLOBULIN RATIO 0.6 (1.0-2.7); ALKALINE PHOSPHATASE 132 U/L (46-116); ANION GAP 9 mmol/L (5-15); ASPARTATE AMINO TRANSFERASE 27 U/L (15-37); BILIRUBIN,TOTAL 0.3 MG/DL (0.2-1.0); BLOOD UREA NITROGEN 12 mg/dL (7-18); CALCIUM 8.9 MG/DL (8.5-10.1); CARBON DIOXIDE 25 MMOL/L (21-32); CHLORIDE 100 MMOL/L (98-107); CREATININE 0.7 MG/DL (0.55-1.30); POTASSIUM 3.4 MMOL/L (3.5-5.1); SODIUM 134 MMOL/L (136-145)
--- NOTE | 2019-11-01 07:45 | NUR ---
NURSE NOTES: Received report from MARIANO Osorio. Pt sitting on the bed, alert and oriented, ablt to make needs known. No acute distress noted. Denies pain at this time. PICC intact and patent with TPN running. Ileo intact and draining to gravity. Bed is low and locked, side rails x2 up, and call light in reach. Will continue to monitor.
--- NOTE | 2019-11-01 07:48 | NUR ---
HAND-OFF: Report given to MARIANO Jimenez.
[2019-11-01 08:00] VITALS: BP 160/89
[2019-11-01] MEDS: LORazepam 1mg tab ORAL SCH ×2 (08:24→17:34)
--- NOTE | 2019-11-01 11:24 | General Progress Note ---
Progress Note Progress Note AVSS c/o nausea overnight now resolved. Took nearly 4000cc po fluids yesterday Abdomen soft, incision clean Urine 4400 voiding BCIR ileo 1490 labs all satisf/stable Imp: improved Plan; BCIR diet continue TPN (low albumin levels) Dayron Corbett MD Nov 01, 2019 11:24
[2019-11-01 12:00] VITALS: BP 162/89
--- NOTE | 2019-11-01 15:13 | NUR ---
CASE MANAGEMENT: REVIEW 10/31/19 SI: ILEUS . HTN . TACHYCARDIA S/P LAPAROTOMY REVISION OF HENNING POUCH S/P POUCH ENDOSCOPY MALFUNCTION HENNING POUCH WITH DIFFICULTY INTUBATING AND INCONTINENCE ABDOMINAL PAIN . GASTROENTEROLOGY F/U . ANEMIA . HYPONATREMIA . HYPOMAGNESEMIA 97.8 111 20 185/101 99% ON RA K+3.4 BG 151 MG 1.7 ALB 2.6 IS:IV D5@ 50ML/HR IV AMPICILLIN Q6HR IV TPN Q24HR FIORICET Q6HR/PRN NOVOLOG SQ Q6HR ZYPREXA PO QHS CAPTOPRIL Q6HR/PRN \: 3E MED SURG UNIT DCP: HOME WHEN STABLE PLAN: START ON CLEAR+ TPN DC HAND STITCHER AND FLAGYL MG SULFATE INFUSION ILEUS SLOWLY RESOLVING AM LABS CONTROL BP~HTN CASE MANAGEMENT: REVIEW 11/01/19 SI: ILEUS . HTN . TACHYCARDIA S/P LAPAROTOMY REVISION OF HENNING POUCH S/P POUCH ENDOSCOPY MALFUNCTION HENNING POUCH WITH DIFFICULTY INTUBATING AND INCONTINENCE ABDOMINAL PAIN . GASTROENTEROLOGY F/U . ANEMIA . HYPONATREMIA . HYPOMAGNESEMIA 97.7 105 18 162/89 98% ON RA K+3.4 BG 131 NA+ 134 MG 1.7 ALB 2.8 PLT 456 IS:IV D5@ 50ML/HR IV AMPICILLIN Q6HR IV TPN Q24HR FIORICET Q6HR/PRN NOVOLOG SQ Q6HR ZYPREXA PO QHS CAPTOPRIL Q6HR/PRN \: 3E MED SURG UNIT DCP: HOME WHEN STABLE PLAN: START ON BCIR LOW RESIDUE DIET + TPN DC HAND STITCHER AND FLAGYL MG SULFATE INFUSION ILEUS SLOWLY RESOLVING AM LABS DC [place] NOW
--- NOTE | 2019-11-01 15:29 | NUR ---
*-* INSURANCE *-* UPDATED CLINICALS AND REVIEWS HAVE BEEN FAXED TO: [facility] AUTH#[id number] P:[phone] F:[phone]
[2019-11-01 16:00] VITALS: BP 140/75
[2019-11-01] MEDS: Ketorolac 30mg Inj IV PRN (16:31)
--- NOTE | 2019-11-01 19:45 | NUR ---
HAND-OFF: Report given to MARIANO Smith.
--- NOTE | 2019-11-01 19:50 | NUR ---
NURSE NOTES: The patient is AOx4 and does not seen to be in any distress at this time. The resp is even and unlabored.The PICC - line is intact and patent with TPN running.The Ileostomy was checked and intact and draining via gravity. The Bed is low and locked, side rails x2 up, and call light within reach. Will continue to monitor.
[2019-11-01 20:00] VITALS: BP 138/83
[2019-11-01] MEDS: OLANZapine 10mg tab ORAL SCH (21:29)
[2019-11-01] MEDS: Dyna-Hex 2% Top Sol 2oz TOPIC SCH (21:29)
[2019-11-01] MEDS: Fat Emulsion Iv 20% 216 ML in Tpn 1,680 ML IV SCH (21:30)
[2019-11-01] MEDS ORDERED: Tubing IV Secondary IV ONE (22:36)
[2019-11-01] MEDS ORDERED: NS Irrig 1000ml ONE ×2 (22:36→22:37)
[2019-11-01] MEDS ORDERED: NS 500ML ONE (22:36)
[2019-11-02] VITALS: BP 121/75
[2019-11-02] MEDS: oxyCODONE HCL/Acetaminophen 5/325mg ORAL PRN ×6 (01:39→21:48)
[2019-11-02 04:00] VITALS: BP 143/68
[2019-11-02] MEDS: Ketorolac 30mg Inj IV PRN (04:23)
[2019-11-02] MEDS: NovoLOG Insulin Flexpen SUBQ SCH ×3 (05:34→17:49)
[2019-11-02 05:48] LABS: BASOPHILS % (AUTO) 1.4 % (0.0-2.0); EOSINOPHILS % (AUTO) 8.5 % (0.0-3.0); HEMATOCRIT 38.4 % (37.0-47.0); HEMOGLOBIN 12.1 G/DL (12.0-16.0); LYMPHOCYTES % (AUTO) 14.3 % (20.0-45.0); MEAN CORPUSCULAR VOLUME 89 FL (80-99); MONOCYTES % (AUTO) 11.3 % (1.0-10.0); NEUTROPHILS % (AUTO) 64.5 % (45.0-75.0); PLATELET COUNT 467 K/UL (150-450); RED BLOOD COUNT 4.31 M/UL (4.20-5.40); RED CELL DISTRIBUTION WIDTH 15.4 % (11.6-14.8); WHITE BLOOD COUNT 10.5 K/UL (4.8-10.8)
[2019-11-02 06:23] LABS: ALANINE AMINOTRANSFERASE 47 U/L (12-78); ALBUMIN 2.8 G/DL (3.4-5.0); ALBUMIN/GLOBULIN RATIO 0.5 (1.0-2.7); ALKALINE PHOSPHATASE 149 U/L (46-116); ANION GAP 8 mmol/L (5-15); ASPARTATE AMINO TRANSFERASE 31 U/L (15-37); BILIRUBIN,TOTAL 0.3 MG/DL (0.2-1.0); BLOOD UREA NITROGEN 16 mg/dL (7-18); CALCIUM 9.2 MG/DL (8.5-10.1); CARBON DIOXIDE 28 MMOL/L (21-32); CHLORIDE 98 MMOL/L (98-107); CREATININE 0.9 MG/DL (0.55-1.30); POTASSIUM 3.7 MMOL/L (3.5-5.1); SODIUM 134 MMOL/L (136-145)
--- NOTE | 2019-11-02 07:25 | NUR ---
HAND-OFF: Report given to Barbara QUINTANA. Patient in stable condition.
--- NOTE | 2019-11-02 07:45 | NUR ---
NURSE NOTES: Received report from MARIANO Smith. Pt sitting on the bed, alert and oriented, able to make needs known. No acute distress noted. Pt c/o abdominal pain and headache 10/19. Will administer pain med as ordered. PICC intact and patent with TPN running. Ileo intact and draining to gravity. Bed is low and locked, side rails x2 up, and call light in reach. Will continue to monitor.
[2019-11-02 08:00] VITALS: BP 142/71
[2019-11-02] MEDS: LORazepam 1mg tab ORAL SCH ×2 (08:16→17:48)
--- NOTE | 2019-11-02 09:24 | NUR ---
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 CURRENT DIET:BCIR LOW RESIDUE PO DIET RECOMMENDATIONS: BCIR low residue diet as per MD PARENTERAL NUTRITION RECOMMENDATIONS: D/AA Rate: 70 IL Rate: 9 Total Rate: 79 Volume: 1896 % Dextrose: 20 % AA: 5.4 Energy (kcals/kg): 1937 Protein (g/kg protein): 91 Nonprotein KCALS: 1574 GIR (mg CHO/kg/min): 3.1 % Fat KCALS: 22 NCP: N Ratio: 109:1 TPN Comment: - D20% w/ 5.4% AA @70 w/ IL 20% @ 9ML/HR, all 3:1 TPN at goal meets 100% est kcal/prot needs -> Rec to taper down TPN then DC. ADDITIONAL RECOMMENDATIONS: 1) Obtain a standing weight as able 2) Monitor PO tolerance and acceptance on BCIR low residue diet -> rec to taper down and DC TPN 3) Monitor ALP -> trending up, rec taper down and DC TPN
--- NOTE | 2019-11-02 10:27 | General Progress Note ---
Progress Note Progress Note AVSS c/o nausea and dizziness which was present before her surgery. Eating BCIr diet 75% + getting TPN Abdomen soft, healing nicely,, non-tender Urine 2800 BCIr ileo 1565 albumin 2.8 Imp: Dizziness and nausea from pre-op ? etiology Plan: antivert po prn d/c Toradol continue TPN, continuous drainage of Saucedo pouch Dayron Corbett MD Nov 02, 2019 10:27
[2019-11-02 12:00] VITALS: BP 160/86
--- NOTE | 2019-11-02 14:36 | NUR ---
CASE MANAGEMENT: REVIEW 11/02/19 SI: ILEUS . HTN . TACHYCARDIA S/P LAPAROTOMY REVISION OF HENNING POUCH S/P POUCH ENDOSCOPY MALFUNCTION HENNING POUCH WITH DIFFICULTY INTUBATING AND INCONTINENCE ABDOMINAL PAIN . GASTROENTEROLOGY F/U . ANEMIA . HYPONATREMIA . HYPOMAGNESEMIA 97.9 95 19 160/86 98% ON RA NA+134 BG 120 ALKP 149 ALBUMIN 2.8 PLT 467 IS:IV D5@ 50ML/HR IV TPN Q24HR FIORICET Q6HR/PRN NOVOLOG SQ Q6HR ZYPREXA PO QHS CAPTOPRIL Q6HR/PRN \: 3E MED SURG UNIT DCP: HOME WHEN STABLE PLAN: CONT + TPN ILEUS SLOWLY RESOLVING DC TORADOL CONTINUOUS DRAINAGE OF HENNING POUCH
--- NOTE | 2019-11-02 14:55 | NUR ---
*-* INSURANCE *-* UPDATED CLINICALS AND REVIEWS HAVE BEEN FAXED TO: [facility] AUTH#[id number] P:[phone] F:[phone]
[2019-11-02] MEDS: Meclizine 25mg tab ORAL PRN (15:47)
[2019-11-02 16:00] VITALS: BP 153/80
--- NOTE | 2019-11-02 19:49 | NUR ---
HAND-OFF: Report given to MARIANO Zamorano.
--- NOTE | 2019-11-02 19:50 | NUR ---
NURSE NOTES: Report received from Delphine Vigil RN. Patient in stable condition. Alert and oriented x4. Seen sleeping and lying in bed. Patient in no apparent distress. BCIR draining to continuous drainage bag, and flushed with 20mL of NS q3 and as ordered. Draining well and patent. Surgical Dressing is clean and dry. Bed is in low and locked position. Side rails upx2. Call light within reach. All needs met at this time. Will continue to monitor patient during my shift.
[2019-11-02 20:00] VITALS: BP 138/83
[2019-11-02] MEDS: OLANZapine 10mg tab ORAL SCH (20:27)
[2019-11-02] MEDS: Dyna-Hex 2% Top Sol 2oz TOPIC SCH (20:27)
[2019-11-02] MEDS: Fat Emulsion Iv 20% 216 ML in Tpn 1,680 ML IV SCH (20:28)
[2019-11-03] VITALS: BP 143/71
[2019-11-03] MEDS: oxyCODONE HCL/Acetaminophen 5/325mg ORAL PRN ×6 (02:07→22:34)
[2019-11-03 04:00] VITALS: BP 124/76
[2019-11-03] MEDS: NovoLOG Insulin Flexpen SUBQ SCH ×4 (05:45→17:45)
[2019-11-03] MEDS: Meclizine 25mg tab ORAL PRN (06:10)
[2019-11-03 06:15] LABS: BASOPHILS % (AUTO) 2.4 % (0.0-2.0); EOSINOPHILS % (AUTO) 8.4 % (0.0-3.0); HEMATOCRIT 42.3 % (37.0-47.0); HEMOGLOBIN 13.2 G/DL (12.0-16.0); LYMPHOCYTES % (AUTO) 13.9 % (20.0-45.0); MEAN CORPUSCULAR VOLUME 90 FL (80-99); MONOCYTES % (AUTO) 10.2 % (1.0-10.0); NEUTROPHILS % (AUTO) 65.1 % (45.0-75.0); PLATELET COUNT 566 K/UL (150-450); RED BLOOD COUNT 4.71 M/UL (4.20-5.40); RED CELL DISTRIBUTION WIDTH 15.5 % (11.6-14.8); WHITE BLOOD COUNT 10.9 K/UL (4.8-10.8)
--- NOTE | 2019-11-03 07:10 | NUR ---
NURSE NOTES: Handoff received from Jaun QUINTANA. Patient is awake and alert, no signs of distress noted. Left upper arm PICC is intact and asymptomatic, running TPN as ordered. Ileo catheter is patent and draining to gravity. Patient updated on plan of care, able to verbalize understanding. Bed is low and locked, side rails up x2, call light is within reach.
--- NOTE | 2019-11-03 07:33 | NUR ---
HAND-OFF: Report given to MARIANO Beltran. Patient in stable condition.
[2019-11-03 08:00] VITALS: BP 145/72
[2019-11-03 08:52] LABS: ALANINE AMINOTRANSFERASE 58 U/L (12-78); ALBUMIN 3.2 G/DL (3.4-5.0); ALBUMIN/GLOBULIN RATIO 0.6 (1.0-2.7); ALKALINE PHOSPHATASE 172 U/L (46-116); ANION GAP 15 mmol/L (5-15); ASPARTATE AMINO TRANSFERASE 43 U/L (15-37); BILIRUBIN,TOTAL 0.3 MG/DL (0.2-1.0); BLOOD UREA NITROGEN 15 mg/dL (7-18); CALCIUM 9.3 MG/DL (8.5-10.1); CARBON DIOXIDE 21 MMOL/L (21-32); CHLORIDE 101 MMOL/L (98-107); CREATININE 0.8 MG/DL (0.55-1.30); POTASSIUM 4.3 MMOL/L (3.5-5.1); SODIUM 137 MMOL/L (136-145)
[2019-11-03] MEDS: LORazepam 1mg tab ORAL SCH ×2 (09:02→17:39)
[2019-11-03] MEDS: Ascorbic Acid 500mg tab ORAL PRN ×2 (10:29→18:09)
--- NOTE | 2019-11-03 11:26 | General Progress Note ---
Progress Note Progress Note AVSS Still complains of incisional pain, nausea and dizziness at times. Ambulates in hallways. Eating 50% BCIR diet + TPN Abdomen soft, flat, non-tender, incision clean Urine 2850 BCIR ileo 1240 WBC 10,900 Hgb 13.2 up Platelets 566,000 up Albumin 3.2 Imp: Slowly improving despite multiple complaints Plan; taper and d/c TPN today f/u labs in AM - if pain increasing or WBC higher will need CT scan abd+ pelvis Dayron Corbett MD Nov 03, 2019 11:26
[2019-11-03 12:00] VITALS: BP 133/64
--- NOTE | 2019-11-03 12:48 | NUR ---
CASE MANAGEMENT: REVIEW 11/03/19 SI: ILEUS . HTN . TACHYCARDIA S/P LAPAROTOMY REVISION OF HENNING POUCH S/P POUCH ENDOSCOPY MALFUNCTION HENNING POUCH WITH DIFFICULTY INTUBATING AND INCONTINENCE ABDOMINAL PAIN . GASTROENTEROLOGY F/U . ANEMIA . HYPONATREMIA . HYPOMAGNESEMIA 97.9 103 20 145/72 98% ON RA WBC 10.9 PLT 566 AST 43 ALKP 172 ALB 3.2 IS:IV D5@ 50ML/HR IV TPN Q24HR FIORICET Q6HR/PRN NOVOLOG SQ Q6HR ZYPREXA PO QHS CAPTOPRIL Q6HR/PRN \: 3E MED SURG UNIT DCP: HOME WHEN STABLE PLAN: TAPER TPN-THEN DC ILEUS SLOWLY RESOLVING CONTINUOUS DRAINAGE OF HENNING POUCH C/O PAIN- IF PERSIST WILL NEED CT ABD/PEL
--- NOTE | 2019-11-03 14:00 | NUR ---
NURSE NOTES: Patient complained of itching on her PICC line site, redness noted around the statlock. Dressing was changed with 2x2 gauze under the statlock, fernando, and bryan with ict educator.
--- NOTE | 2019-11-03 15:01 | NUR ---
*-* INSURANCE *-* UPDATED CLINICALS AND REVIEWS HAVE BEEN FAXED TO: [facility] AUTH#[id number] P:[phone] F:[phone]
[2019-11-03 16:00] VITALS: BP 147/78
--- NOTE | 2019-11-03 16:17 | NUR ---
NURSE NOTES:Ambulated in hallway,tolerated 3rounds,claims"nausea getting better".
--- NOTE | 2019-11-03 17:40 | NUR ---
NURSE NOTES: Patient reported a feeling of wetness under her dressing and pressure in her abdomen. RN noted fluid coming out of stoma, flushed an extra 30 cc and encouraged ambulation. Output flow was improved and the patient reported relief from her pain.
--- NOTE | 2019-11-03 18:00 | NUR ---
NURSE NOTES: total urine output: 950 Total ileo output: +1180 Patient ambulated in the hallways x3 today. Patient complained of nausea in the AM, but the nausea improved throughout the day. Patient requested her percocet q4 hours today. Addendum: 11/03/19 at 1958 by Devin Salazar RN RN Patient was also given vitamin C x2 today for thick output.
--- NOTE | 2019-11-03 19:44 | NUR ---
NURSES NOTE: Rounds made with MARIANO Beltran. Pt in bed, A/OX4, denies pain at this moment. No outward s/s of distress noted. Breathing pattern is even and unlabored on RA. Ileo RLQ, in place, patent, to be flushed Q3H. Abdominal dressing changed previous shift. PICC line, ASIA, in place, infusing TPN at 79cc/HR. TPN to be slowed and d/c NOC shift. All due meds will be given. Bed at lowest level, call light within reach. Pt will continue to be monitored.
[2019-11-03 20:00] VITALS: BP 163/91
[2019-11-03] MEDS: Fat Emulsion Iv 20% 216 ML in Tpn 1,680 ML IV SCH (20:00)
[2019-11-03] MEDS: Dyna-Hex 2% Top Sol 2oz TOPIC SCH (20:47)
[2019-11-03] MEDS: OLANZapine 10mg tab ORAL SCH (20:47)
[2019-11-03] MEDS: Captopril 12.5mg tab SL PRN (20:48)
[2019-11-04] VITALS: BP 127/93
[2019-11-04] MEDS: oxyCODONE HCL/Acetaminophen 5/325mg ORAL PRN ×6 (02:34→18:58)
[2019-11-04 04:00] VITALS: BP 127/66
[2019-11-04] MEDS: Meclizine 25mg tab ORAL PRN (04:20)
[2019-11-04 06:37] LABS: BASOPHILS % (AUTO) 2.2 % (0.0-2.0); EOSINOPHILS % (AUTO) 6.5 % (0.0-3.0); HEMATOCRIT 43.5 % (37.0-47.0); HEMOGLOBIN 13.5 G/DL (12.0-16.0); MEAN CORPUSCULAR VOLUME 90 FL (80-99); MONOCYTES % (AUTO) 9.1 % (1.0-10.0); NEUTROPHILS % (AUTO) 65.2 % (45.0-75.0); PLATELET COUNT 647 K/UL (150-450); RED BLOOD COUNT 4.83 M/UL (4.20-5.40); RED CELL DISTRIBUTION WIDTH 15.5 % (11.6-14.8); WHITE BLOOD COUNT 10.7 K/UL (4.8-10.8)
[2019-11-04 07:11] LABS: ALANINE AMINOTRANSFERASE 85 U/L (12-78); ALBUMIN 3.4 G/DL (3.4-5.0); ALBUMIN/GLOBULIN RATIO 0.6 (1.0-2.7); ALKALINE PHOSPHATASE 232 U/L (46-116); ANION GAP 11 mmol/L (5-15); ASPARTATE AMINO TRANSFERASE 50 U/L (15-37); BILIRUBIN,TOTAL 0.3 MG/DL (0.2-1.0); BLOOD UREA NITROGEN 12 mg/dL (7-18); CALCIUM 9.6 MG/DL (8.5-10.1); CARBON DIOXIDE 24 MMOL/L (21-32); CHLORIDE 96 MMOL/L (98-107); CREATININE 0.8 MG/DL (0.55-1.30); POTASSIUM 3.8 MMOL/L (3.5-5.1); SODIUM 131 MMOL/L (136-145)
--- NOTE | 2019-11-04 07:15 | NUR ---
HAND OFF: Report given to MARIANO Beltran. Pt praveen.
--- NOTE | 2019-11-04 07:20 | NUR ---
NURSE NOTES: Handoff received from Bianca QUINTANA. Patient is awake and alert, no signs of distress noted. Patient is reporting nausea, 0/10 pain. Ileo is patent and draining to gravity, left arm PICC dressing is intact. Patient updated on plan of care. Bed is low and locked, side rails up x2, call light is within reach.
[2019-11-04 08:00] VITALS: BP 150/61
[2019-11-04] MEDS: LORazepam 1mg tab ORAL SCH ×3 (08:33→18:04)
[2019-11-04] MEDS ORDERED: Omnipaque-300 100ml vial INJ PRN (08:45)
--- NOTE | 2019-11-04 08:49 | General Progress Note ---
Progress Note Progress Note AVSS c/o nausea ever since surgery, made worse by zofran and compazine. Cannot take Reglan TPN was stopped but no change with nausea and now not eating well ABdomen soft, flat, non-tender, healing nicely Urine 2950 BCIR ileo 1625 WBC down 10,700 Hgb 13.5 Platelets up 647,000 Na 131 K 3.8 albumin low normal 3.4 slight increased LFTs (off TPN now) Imp: Persistent abdominal pain and nausea ? etiology Plan: NPO, IV fluids, maintain continuous drainage of Saucedo pouch STAT CT scan abd+pelvis with oral and Iv contrast Dayron Corbett MD Nov 04, 2019 08:49
[2019-11-04] MEDS: NS w/KCl 20mEq 1000ml 1,000 ML IV SCH ×2 (10:00→20:42)
--- NOTE | 2019-11-04 10:22 | NUR ---
NURSE NOTES: Patient left for CT scan in stable condition.
--- NOTE | 2019-11-04 11:32 | Diagnostic Imaging Report ---
EXAM: CT CT Abdomen Pelvis w/Contrast INDICATION: Abdominal pain. 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 Nausea. COMPARISON: None TECHNIQUE: Axial images were obtained through the abdomen pelvis with intravenous contrast. Sagittal and coronal reformats are generated. All CT scans at this facility are performed using dose modulation techniques as appropriate to a performed exam including the following: automated exposure control with adjustment of the mA and/or kV according to patient size. RADIATION DOSE: CTDIvol: 6 mGy DLP: 319.3 mGy-cm Dose information generated by the CT scanner is available in PACS. FINDINGS: The lung bases are clear. The liver and spleen are homogeneous. Gallbladder is without sludge or stone and there is no wall thickening. The pancreas is unremarkable. Adrenals are normal in morphology. There are small left renal cysts. No hydronephrosis seen bilaterally. Patient is status post colectomy. Small bowel loops are nondistended. There is an ileostomy noted in the right lower quadrant/pelvis with an apparent catheter extending through the stoma into the pouch. The pouch is empty and adjacent bowel loops also nondistended. There is a small circumscribed cystic appearing structure seen adjacent to the uterus and the pouch. This is indeterminate for postoperative seroma or an adnexal cyst. Size is approximately 3.6 x 3.2 cm. Midline skin nabila noted. There is a small amount of fluid noted within the subcutaneous fat just deep to the skin incision likely postoperative fluid. There is slight diastases of the abdominal rectus muscles with slight focal bulging and There is no free fluid or free air. No pathologic adenopathy demonstrated. Urinary bladder appears unremarkable. There is no suspicious superficial soft tissue or osseous abnormality. IMPRESSION: STATUS POST COLECTOMY WITH AN ILEOSTOMY AND POUCH NOTED IN THE RIGHT LOWER QUADRANT/RIGHT PELVIS. A CATHETER IS NOTED EXTENDING THROUGH THE STOMA INTO THE POUCH AND THE POUCH IS EMPTY. VISUALIZED BOWEL LOOPS ARE NONDISTENDED. NO SIGN OF OBSTRUCTION. A SMALL FLUID CONTAINING CYSTIC APPEARING STRUCTURE SEEN ADJACENT TO THE POUCH AND UTERUS. THIS IS INDETERMINATE FOR SMALL POSTOPERATIVE SEROMA VERSUS AN ADNEXAL CYST. POSTOPERATIVE CHANGES IN THE ANTERIOR ABDOMINAL WALL WITH SKIN NABILA AND SMALL AMOUNT OF SUBCUTANEOUS FLUID.
[2019-11-04 12:00] VITALS: BP 130/84
[2019-11-04] MEDS ORDERED: Cathflo Alteplase 2mg Inj INJ ONE (13:00)
--- NOTE | 2019-11-04 14:48 | General Progress Note ---
Assessment/Plan Problem List: (1) Nausea & vomiting ICD Codes: R11.2 - Nausea with vomiting, unspecified SNOMED: 31292295 (2) Gastroenterology follow-up encounter ICD Codes: Z09 - Encounter for follow-up examination after completed treatment for conditions other than malignant neoplasm SNOMED: 572148028 (3) Anemia ICD Codes: D64.9 - Anemia, unspecified SNOMED: 304972560 (4) Hyponatremia ICD Codes: E87.1 - Hypo-osmolality and hyponatremia SNOMED: 25773138 (5) Hypomagnesemia ICD Codes: E83.42 - Hypomagnesemia SNOMED: 392139417 Assessment/Plan: CT reviewed off TPN fu lfts add protonix and baclofen will fu Subjective ROS Limited/Unobtainable: Yes Allergies: Coded Allergies: SULFA (SULFONAMIDE ANTIBIOTICS) (Verified Allergy, Severe, Itching, ) FACIAL SWELLING. Uncoded Allergies: SULFA (Allergy, Unknown, 10/21/19) Objective Last 24 Hour Vital Signs Date Time Temp Pulse Resp B/P (MAP) Pulse Ox O2 Delivery O2 Flow Rate FiO2 11/04/19 13:28 98.4 11/04/19 12:00 98.4 90 20 130/84 (99) 97 11/04/19 09:00 Room Air 11/04/19 08:00 98.0 80 18 150/61 (90) 99 11/04/19 04:00 97.4 96 18 127/66 (86) 96 11/04/19 00:00 98.1 103 17 127/93 (104) 96 11/03/19 21:00 Room Air 11/03/19 20:48 163/91 11/03/19 20:00 98.9 103 19 163/91 (115) 94 11/03/19 19:00 98.8 11/03/19 16:00 98.8 100 19 147/78 (101) 98 Intake and Output 11/03/19 11/04/19 19:00 07:00 Intake Total 1200 ml 1400 ml Output Total 2250 ml 2445 ml Balance -1050 ml -1045 ml Intake Oral 1200 ml 1400 ml Output Urine Total 950 ml 2000 ml Other 1300 ml 445 ml # Voids 3 Laboratory Tests 11/04/19 05:10: White Blood Count 10.7, Red Blood Count 4.83, Hemoglobin 13.5, Hematocrit 43.5, Mean Corpuscular Volume 90, Mean Corpuscular Hemoglobin 28.0, Mean Corpuscular Hemoglobin Concent 31.0L, Red Cell Distribution Width 15.5H, Platelet Count 647H , Mean Platelet Volume 6.3L, Neutrophils (%) (Auto) 65.2, Lymphocytes (%) (Auto ) 17.0L, Monocytes (%) (Auto) 9.1, Eosinophils (%) (Auto) 6.5H, Basophils (%) ( Auto) 2.2H, Sodium Level 131L, Potassium Level 3.8, Chloride Level 96L, Carbon Dioxide Level 24, Anion Gap 11, Blood Urea Nitrogen 12, Creatinine 0.8, Estimat Glomerular Filtration Rate > 60, Glucose Level 88, Calcium Level 9.6, Total Bilirubin 0.3, Aspartate Amino Transf (AST/SGOT) 50H, Alanine Aminotransferase ( ALT/SGPT) 85H, Alkaline Phosphatase 232H, Total Protein 8.8H, Albumin 3.4, Globulin 5.4, Albumin/Globulin Ratio 0.6L Height (Feet): 5 Height (Inches): 8.00 Weight (Pounds): 164 General Appearance: alert EENT: normal ENT inspection Neck: supple Cardiovascular: normal rate Respiratory/Chest: decreased breath sounds Abdomen: soft, hypoactive bowel sounds, tender Extremities: non-tender Leonard Stein MD Nov 04, 2019 14:48
--- NOTE | 2019-11-04 14:58 | NUR ---
CASE MANAGEMENT: REVIEW 11/04/19 SI: ILEUS . HTN . TACHYCARDIA S/P LAPAROTOMY REVISION OF HENNING POUCH S/P POUCH ENDOSCOPY MALFUNCTION HENNING POUCH WITH DIFFICULTY INTUBATING AND INCONTINENCE ABDOMINAL PAIN . GASTROENTEROLOGY F/U . ANEMIA . HYPONATREMIA . HYPOMAGNESEMIA 98.0 80 18 150/61 99% ON RA PLT 647 NA+ 131 CL-96 AST/ALT 50/85 ALKP 232 IS:IV KCL @100ML/HR FIORICET Q6HR/PRN ZYPREXA PO QHS CAPTOPRIL Q6HR/PRN PERCOCET PO Q3HR/PRN CT ABD/PEL:Abdominal pain. 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 Nausea. STATUS POST COLECTOMY WITH AN ILEOSTOMY AND POUCH NOTED IN THE RIGHT LOWER QUADRANT/RIGHT PELVIS. A CATHETER IS NOTED EXTENDING THROUGH THE STOMA INTO THE POUCH AND THE POUCH IS EMPTY.VISUALIZED BOWEL LOOPS ARE NONDISTENDED. NO SIGN OF OBSTRUCTION. A SMALL FLUID CONTAINING CYSTIC APPEARING STRUCTURE SEEN ADJACENT TO THE POUCH AND UTERUS. THIS IS INDETERMINATE FOR SMALL POSTOPERATIVE SEROMA VERSUS AN ADNEXAL CYST. POSTOPERATIVE CHANGES IN THE ANTERIOR ABDOMINAL WALL WITH SKIN ABENA AND SMALL AMOUNT OF SUBCUTANEOUS FLUID. \: 3E MED SURG UNIT DCP: HOME WHEN STABLE PLAN: [facility] DIET LOW RESIDUAL DIET ILEUS SLOWLY RESOLVING CONTINUOUS DRAINAGE OF HENNING POUCH CONTROL PAIN
[2019-11-04 16:00] VITALS: BP 114/73
--- NOTE | 2019-11-04 18:00 | NUR ---
NURSE NOTES: Total urine output:1450 Total ileo output: +[address] scan today with oral and IV contrast. Patient also complained of nausea throughout the day and stated that the zofran ODT did not work for her. Patient stated that the percocet PRN q3 hours is much better for her pain control.
--- NOTE | 2019-11-04 19:20 | NUR ---
HAND-OFF: Report given to Bianca QUINTANA.
[2019-11-04 20:00] VITALS: BP 126/88
[2019-11-04] MEDS: Dyna-Hex 2% Top Sol 2oz TOPIC SCH (20:41)
[2019-11-04] MEDS: OLANZapine 10mg tab ORAL SCH (20:42)
--- NOTE | 2019-11-04 21:21 | NUR ---
NURSES NOTE: Rounds made with MARIANO Beltran. Pt in bed, A/OX4, denies pain currently. Pt does, however, c/o nausea. Zofran 4mg PO administered by outgoing nurse. No outward s/s of distress noted. Breathing is even and unlabored on RA. PICC line, ASIA, intact, infusing IVF fluids. Ileo, patent, draining to gravity to be flushed Q3H. All due medications will be given. Bed at lowest level, call light within reach. Pt will continue to be monitored.
[2019-11-05] VITALS (10 sets, daily range): BP systolic 119–156; BP diastolic 59–81
[2019-11-05] MEDS: oxyCODONE HCL/Acetaminophen 5/325mg ORAL PRN ×6 (00:43→18:29)
--- NOTE | 2019-11-05 01:28 | NUR ---
NURSES NOTE: Pt NPO as of 0000. No further c/o of nausea.
--- NOTE | 2019-11-05 02:09 | NUR ---
NURSES NOTE: Monitoring ileo amount output as well as consistency. Endorsed from previous shift. To be reported to Dr. Corbett in the AM.
[2019-11-05] MEDS: NS w/KCl 20mEq 1000ml 1,000 ML IV SCH ×2 (05:14→15:16)
[2019-11-05 06:07] LABS: BASOPHILS % (AUTO) 3.3 % (0.0-2.0); EOSINOPHILS % (AUTO) 10.4 % (0.0-3.0); HEMATOCRIT 35.4 % (37.0-47.0); LYMPHOCYTES % (AUTO) 17.9 % (20.0-45.0); MEAN CORPUSCULAR VOLUME 90 FL (80-99); MONOCYTES % (AUTO) 10.6 % (1.0-10.0); NEUTROPHILS % (AUTO) 57.8 % (45.0-75.0); PLATELET COUNT 575 K/UL (150-450); RED BLOOD COUNT 3.92 M/UL (4.20-5.40); RED CELL DISTRIBUTION WIDTH 15.7 % (11.6-14.8); WHITE BLOOD COUNT 7.7 K/UL (4.8-10.8)
--- NOTE | 2019-11-05 07:10 | NUR ---
HAND OFF: Report given to MARIANO Elder. Pt stable.
--- NOTE | 2019-11-05 07:27 | NUR ---
NURSE NOTES: Received report from Bianca QUINTANA, rounds made pt wake, a/ox4 no s/s of distress on RA, pt has pic on the ASIA with IVF, patent asymptomatic, ileostomy on the R lower quad, draining to gravity , dressing intact , pt remains NPO for procedure, bed in low locked position, side rails upX2, call light with in reach , will continue to monitor ileo out put
[2019-11-05 08:01] LABS: ALANINE AMINOTRANSFERASE 93 U/L (12-78); ALBUMIN 3.3 G/DL (3.4-5.0); ALBUMIN/GLOBULIN RATIO 0.7 (1.0-2.7); ALKALINE PHOSPHATASE 204 U/L (46-116); ANION GAP 11 mmol/L (5-15); ASPARTATE AMINO TRANSFERASE 25 U/L (15-37); BILIRUBIN,TOTAL 0.4 MG/DL (0.2-1.0); BLOOD UREA NITROGEN 11 mg/dL (7-18); CARBON DIOXIDE 22 MMOL/L (21-32); CHLORIDE 102 MMOL/L (98-107); CREATININE 0.9 MG/DL (0.55-1.30); POTASSIUM 4.6 MMOL/L (3.5-5.1); SODIUM 135 MMOL/L (136-145)
--- NOTE | 2019-11-05 08:23 | General Progress Note ---
Progress Note Progress Note AVSS Persistent nausea. Now npo for EGD by Dr. Stein today. CT abd+pelvis negative to explain her persistent pain and nausea Abdomen soft, healing nicely Urine 2550 BCIR ileo 2540 (includes contrast for CT scan) WBC 7700 Hgb 11 Platelets down 575,000 chemistries okay Imp: Nausea ? etiology Plan: EGD today maintain continuous drainage of Saucedo Pouch, IV fluids Dayron Corbett MD Nov 05, 2019 08:23
[2019-11-05] MEDS: LORazepam 1mg tab ORAL SCH ×2 (08:28→17:17)
[2019-11-05] MEDS ORDERED: oxyCODONE HCL/Acetaminophen 5/325mg ORAL PRN (09:30)
--- NOTE | 2019-11-05 09:32 | NUR ---
*-* INSURANCE *-* UPDATED CLINICALS AND REVIEWS HAVE BEEN FAXED TO: [facility]#[id number] P:[phone] F:[phone] Addendum: 11/05/19 at 0933 by JAYCE SIMS CM *-* CLINICALS FROM 11/03- FAXED *-*
--- NOTE | 2019-11-05 11:38 | Pre-Procedure Note/Attestation ---
Pre-Procedure Note/Attestation Complete Prior to Procedure Planned Procedure: not applicable Procedure Narrative: egd Indications for Procedure Pre-Operative Diagnosis: anemia Attestation I attest that I discussed the nature of the procedure; its benefits; risks and complications; and alternatives (and the risks and benefits of such alternatives ), prior to the procedure, with the patient (or the patient's legal leasing representative). I attest that, if there was a reasonable possibility of needing a blood transfusion, the patient (or the patient's legal leasing representative) was given the [facility] standardized written summary, pursuant to the Duane B[place] Blood Safety Act ([place] Health and Safety Code # 1645, as amended). I attest that I re-evaluated the patient just prior to the surgery and that there has been no change in the patient's H&P, except as documented below: Leonard Stein MD Nov 05, 2019 11:38
--- NOTE | 2019-11-05 13:02 | NUR ---
CASE MANAGEMENT: REVIEW 11/05/19 SI: ILEUS . HTN . TACHYCARDIA S/P LAPAROTOMY REVISION OF HENNING POUCH S/P POUCH ENDOSCOPY MALFUNCTION HENNING POUCH WITH DIFFICULTY INTUBATING AND INCONTINENCE ABDOMINAL PAIN . GASTROENTEROLOGY F/U . ANEMIA . HYPONATREMIA . HYPOMAGNESEMIA 98.3 87 20 119/62 99% ON RA PLT 575 AST 93 ALKP 204 ALB 3.3 IS:IV KCL @100ML/HR FIORICET Q6HR/PRN ZYPREXA PO QHS CAPTOPRIL Q6HR/PRN \: 3E MED SURG UNIT DCP: HOME WHEN STABLE PLAN: EGD TODAY MAINTAIN CONTINUOUS DRAINAGE OF HENNING POUCH
[2019-11-05] MEDS ORDERED: Lidocaine 1% MPF 10mg/ml 5ml ONE (13:30)
[2019-11-05] MEDS ORDERED: LR 1000ml ONE (13:30)
--- NOTE | 2019-11-05 13:31 | NUR ---
PT WEEKLY PROGRESS NOTE Patient continues to be seen by PT for skilled inpatient PT intervention consisting of therapeutic exercises, transfers training and gait training. Participation at times limited by c/o pain or nausea however patient is progressing with ambulation endurance and level of assistance. Patient will continue to benefit from skilled inpatient PT intervention to increase independence with functional mobility including stair training as patient has 10 stairs to negotiate at home.
[2019-11-05] MEDS ORDERED: NS 500ML IVPB ONE (13:50)
--- NOTE | 2019-11-05 14:06 | Endoscopy Procedure Note ---
Endoscopy Procedure Note General Indication for Procedure: gib Procedures Performed: EGD Operative Findings/Diagnosis: gastritis Specimen: yes Pt Tolerated Procedure Well: Yes Estimated Blood Loss: none Anesthesia Anesthesiologist: celso Anesthesia: MAC Inserted Devices Implant(s) used?: No GI Core Measures 50 yrs or older w/o bx or poly: Not Applicable 10yrs. F/U recommended: Not Applicable Leonard Stein MD Nov 05, 2019 14:06
--- NOTE | 2019-11-05 14:10 | Immediate Post-Op Evaluation ---
Immediate Post-Op Evalulation Immediate Post-Op Evalulation Procedure: EGD Date of Evaluation: Nov 05, 2019 Time of Evaluation: 14:10 IV Fluids: 300 Blood Pressure Systolic: 126 Blood Pressure Diastolic: 71 Pulse Rate: 83 Respiratory Rate: 14 O2 Sat by Pulse Oximetry: 98 Temperature (Fahrenheit): 97.0 Nausea: No Vomiting: No Patient Status: awake, reacts, patent Hydration Status: adequate Drug: none Shikha Suarez CRNA Nov 05, 2019 14:10
--- NOTE | 2019-11-05 14:13 | Anethesia Preoperative Eval ---
Anesthesia Pre-op PMH/ROS General Date of Evaluation: Nov 05, 2019 Time of Evaluation: 13:50 Anesthesiologist: slade ASA Score: ASA 2 Mallampati Score Class I : Soft palate, uvula, fauces, pillars visible Class II: Soft palate, uvula, fauces visible Class III: Soft palate, base of uvula visible Class IV: Only hard plate visible Mallampati Classification: Class II Surgeon: migdalia Diagnosis: anemia Surgical Procedure: egd Anesthesia History: PONV Allergies: Coded Allergies: SULFA (SULFONAMIDE ANTIBIOTICS) (Verified Allergy, Severe, Itching, ) FACIAL SWELLING. Uncoded Allergies: SULFA (Allergy, Unknown, 10/21/19) Medications: see eMAR Patient NPO?: Yes NPO Date: Nov 05, 2019 NPO Time: 00:01 Past Medical History Cardiovascular: Reports: HTN; Denies: CAD, NH, valve dz, arrhythmia, other Pulmonary: Denies: asthma, COPD, PATRICIA, other Gastrointestinal/Genitourinary: Denies: GERD, CRI, ESRD, other Neurologic/Psychiatric: Reports: depression/anxiety; Denies: dementia, CVA, TIA, other Endocrine: Denies: DM, hypothyroidism, steroids, other HEENT: Denies: cataract (L), cataract (R), glaucoma, [place] (L), [place] (R), other Hematology/Immune: Reports: anemia; Denies: DVT, bleeding disorder, other Musculoskeletal/Integumentary: Denies: OA, RA, DJD, DDD, edema, other PSxH Narrative: pouch repair ex lap; Hx of Anesthesia Pre-op Phys. Exam Physician Exam Last Vital Signs Date Time Temp Pulse Resp B/P (MAP) Pulse Ox O2 Delivery O2 Flow Rate FiO2 11/05/19 12:00 98.7 93 20 121/75 (90) 92 11/05/19 09:00 Room Air Constitutional: NAD Neurologic: CN 2-12 intact Cardiovascular: RRR Respiratory: CTA Gastrointestinal: S/NT/ND Airway Exam Mallampati Classification 2 Mallampati Score: Class II MO: full ROM: full Dentures: no upper, no lower Anesthesia Pre-op A/P Labs Hematology Test 11/05/19 05:00 White Blood Count 7.7 K/UL (4.8-10.8) Red Blood Count 3.92 M/UL (4.20-5.40) L Hemoglobin 11.0 G/DL (12.0-16.0) L Hematocrit 35.4 % (37.0-47.0) L Mean Corpuscular Volume 90 FL (80-99) Mean Corpuscular Hemoglobin 27.9 PG (27.0-31.0) Mean Corpuscular Hemoglobin Concent 31.0 G/DL (32.0-36.0) L Red Cell Distribution Width 15.7 % (11.6-14.8) H Platelet Count 575 K/UL (150-450) H Mean Platelet Volume 6.3 FL (6.5-10.1) L Neutrophils (%) (Auto) 57.8 % (45.0-75.0) Lymphocytes (%) (Auto) 17.9 % (20.0-45.0) L Monocytes (%) (Auto) 10.6 % (1.0-10.0) H Eosinophils (%) (Auto) 10.4 % (0.0-3.0) H Basophils (%) (Auto) 3.3 % (0.0-2.0) H Chemistry Test 11/05/19 07:30 Sodium Level 135 MMOL/L (136-145) L Potassium Level 4.6 MMOL/L (3.5-5.1) Chloride Level 102 MMOL/L (98-107) Carbon Dioxide Level 22 MMOL/L (21-32) Anion Gap 11 mmol/L (5-15) Blood Urea Nitrogen 11 mg/dL (7-18) Creatinine 0.9 MG/DL (0.55-1.30) Estimat Glomerular Filtration Rate > 60 mL/min (>60) Glucose Level 94 MG/DL (74-106) Calcium Level 9.0 MG/DL (8.5-10.1) Magnesium Level 1.9 MG/DL (1.8-2.4) Total Bilirubin 0.4 MG/DL (0.2-1.0) Aspartate Amino Transf (AST/SGOT) 25 U/L (15-37) Alanine Aminotransferase (ALT/SGPT) 93 U/L (12-78) H Alkaline Phosphatase 204 U/L (46-116) H Total Protein 8.3 G/DL (6.4-8.2) H Albumin 3.3 G/DL (3.4-5.0) L Globulin 5.0 g/dL Albumin/Globulin Ratio 0.7 (1.0-2.7) L Studies Pre-op Studies: EKG - r Risk Assessment & Plan Plan: mac Status Change Before Surgery: No Pre-Antibiotics Drug: none Shikha Suarez SENIOR PROCESS ENGINEER Nov 05, 2019 14:13
--- NOTE | 2019-11-05 14:37 | 48 Hour Post Anesthesia Eval ---
Post Anesthesia Evaluation Procedure: EGD Date of Evaluation: Nov 05, 2019 Time of Evaluation: 14:37 Blood Pressure Systolic: 122 0: 84 Pulse Rate: 61 Respiratory Rate: 14 O2 Sat by Pulse Oximetry: 98 Airway: patent Nausea: No Vomiting: No Hydration Status: adequate Cardiopulmonary Status: stable Mental Status/LOC: patient returned to baseline Post-Anesthesia Complications: none Follow-up care needed: N/A Shikha Suarez CRNA Nov 05, 2019 14:37
--- NOTE | 2019-11-05 18:00 | NUR ---
NURSE NOTES Pt remains stable , ambulated with physical therapy and tolerated it well, pt back to the BCIR diet
--- NOTE | 2019-11-05 19:15 | NUR ---
NURSE NOTES: Received report from MARIANO Elder. Pt is awake, lying semi-herring's; comfortably resting. No signs of acute distress noted. Pt denies any pain at this time. AOx4; able to make needs known. Right FA 24G noted; infiltrated and taken out. RN will attempt to place one at a later time. Abdomen dressing noted; dry and intact. No erythema, bleeding, or infiltration noted. Ileo bag noted; patent and draining. Bed at lowest position. Brakes on. Siderails up x3. Call light within reach. Will continue to monitor.
--- NOTE | 2019-11-05 19:26 | NUR ---
HAND-OFF: Report given to Leia QUINTANA, pt stable.
[2019-11-05] MEDS: Dyna-Hex 2% Top Sol 2oz TOPIC SCH (20:00)
[2019-11-05] MEDS: OLANZapine 10mg tab ORAL SCH (20:42)
[2019-11-05] MEDS: Vitamin A&D Oint Tube TOPIC PRN (21:00)
[2019-11-06] VITALS: BP 141/90
[2019-11-06] MEDS: oxyCODONE HCL/Acetaminophen 5/325mg ORAL PRN ×7 (00:09→20:57)
[2019-11-06 03:20] VITALS: BP 134/64
[2019-11-06] MEDS: NS w/KCl 20mEq 1000ml 1,000 ML IV SCH (03:21)
[2019-11-06 05:53] LABS: BASOPHILS % (AUTO) 2.7 % (0.0-2.0); EOSINOPHILS % (AUTO) 12.2 % (0.0-3.0); HEMATOCRIT 36.4 % (37.0-47.0); HEMOGLOBIN 11.3 G/DL (12.0-16.0); LYMPHOCYTES % (AUTO) 22.4 % (20.0-45.0); MEAN CORPUSCULAR VOLUME 91 FL (80-99); MONOCYTES % (AUTO) 13.8 % (1.0-10.0); PLATELET COUNT 611 K/UL (150-450); RED BLOOD COUNT 4.01 M/UL (4.20-5.40); RED CELL DISTRIBUTION WIDTH 15.2 % (11.6-14.8); WHITE BLOOD COUNT 6.2 K/UL (4.8-10.8)
[2019-11-06 06:05] LABS: ALANINE AMINOTRANSFERASE 60 U/L (12-78); ALBUMIN 2.9 G/DL (3.4-5.0); ALBUMIN/GLOBULIN RATIO 0.6 (1.0-2.7); ALKALINE PHOSPHATASE 165 U/L (46-116); ANION GAP 8 mmol/L (5-15); ASPARTATE AMINO TRANSFERASE 28 U/L (15-37); BILIRUBIN,TOTAL 0.4 MG/DL (0.2-1.0); BLOOD UREA NITROGEN 8 mg/dL (7-18); CALCIUM 8.6 MG/DL (8.5-10.1); CARBON DIOXIDE 24 MMOL/L (21-32); CHLORIDE 103 MMOL/L (98-107); CREATININE 0.9 MG/DL (0.55-1.30); POTASSIUM 4.1 MMOL/L (3.5-5.1); SODIUM 135 MMOL/L (136-145)
--- NOTE | 2019-11-06 07:10 | NUR ---
HAND-OFF: Report given to MARIANO Elder. Pt is awake, eating and in stable condition. Plan of care endorsed.
--- NOTE | 2019-11-06 07:45 | NUR ---
NURSE NOTES: Received report from Leia RN, rounds made pt wake, a/ox4 no s/s of distress on RA, pt just finished having breakfast, pt has RT Forearm 24G with IVF , patent asymptomatic, ileostomy on the R lower quad,connected to drainage bag with Q 3 flush schedule, dressing intact , pt has redness on the ASIA ,will notify MD to look at site, bed in low locked position, side rails upX2, call light with in reach , will continue to monitor ileo out put and continue plan of care
[2019-11-06 08:00] VITALS: BP 137/86
[2019-11-06] MEDS: LORazepam 1mg tab ORAL SCH ×2 (08:12→17:44)
--- NOTE | 2019-11-06 08:57 | General Progress Note ---
Assessment/Plan Problem List: (1) Nausea & vomiting ICD Codes: R11.2 - Nausea with vomiting, unspecified SNOMED: 01804689 (2) Gastroenterology follow-up encounter ICD Codes: Z09 - Encounter for follow-up examination after completed treatment for conditions other than malignant neoplasm SNOMED: 890295988 (3) Anemia ICD Codes: D64.9 - Anemia, unspecified SNOMED: 139352256 (4) Hyponatremia ICD Codes: E87.1 - Hypo-osmolality and hyponatremia SNOMED: 21180323 (5) Hypomagnesemia ICD Codes: E83.42 - Hypomagnesemia SNOMED: 632932412 Assessment/Plan: CT reviewed on TPN fu lfts on protonix and baclofen with grat results s/p EGD>>> gastritis will fu Subjective ROS Limited/Unobtainable: Yes Allergies: Coded Allergies: SULFA (SULFONAMIDE ANTIBIOTICS) (Verified Allergy, Severe, Itching, ) FACIAL SWELLING. Uncoded Allergies: SULFA (Allergy, Unknown, 10/21/19) Objective Last 24 Hour Vital Signs Date Time Temp Pulse Resp B/P (MAP) Pulse Ox O2 Delivery O2 Flow Rate FiO2 11/06/19 08:00 98.5 86 20 137/86 (103) 97 11/06/19 03:20 98.4 88 20 134/64 (87) 95 11/06/19 00:00 98.1 94 20 141/90 (107) 96 11/05/19 21:00 Room Air 11/05/19 20:00 97.5 71 20 141/60 (87) 95 11/05/19 16:00 98.6 93 20 131/70 (90) 86 11/05/19 14:37 61 14 98 11/05/19 14:30 97.9 84 16 154/59 99 Room Air 11/05/19 14:25 86 23 128/81 99 Room Air 11/05/19 14:15 87 22 142/72 99 Room Air 11/05/19 14:10 86 22 156/69 99 Room Air 11/05/19 14:10 83 14 98 11/05/19 14:05 97.6 84 15 126/77 99 Room Air 11/05/19 12:00 98.7 93 20 121/75 (90) 92 11/05/19 09:00 Room Air Intake and Output 11/05/19 11/06/19 19:00 07:00 Intake Total 2090 ml 2640 ml Output Total 1620 ml 2595 ml Balance 470 ml 45 ml Intake Oral 640 ml 2640 ml IV Total 1450 ml Output Urine Total 950 ml 1800 ml Other 670 ml 795 ml # Voids 4 Laboratory Tests 11/06/19 04:50: White Blood Count 6.2, Red Blood Count 4.01L, Hemoglobin 11.3L, Hematocrit 36.4L , Mean Corpuscular Volume 91, Mean Corpuscular Hemoglobin 28.2, Mean Corpuscular Hemoglobin Concent 31.0L, Red Cell Distribution Width 15.2H, Platelet Count 611H, Mean Platelet Volume 6.0L, Neutrophils (%) (Auto) 49.0, Lymphocytes (%) (Auto) 22.4, Monocytes (%) (Auto) 13.8H, Eosinophils (%) (Auto) 12.2H, Basophils (%) (Auto) 2.7H, Sodium Level 135L, Potassium Level 4.1, Chloride Level 103, Carbon Dioxide Level 24, Anion Gap 8, Blood Urea Nitrogen 8 , Creatinine 0.9, Estimat Glomerular Filtration Rate > 60, Glucose Level 94, Calcium Level 8.6, Total Bilirubin 0.4, Aspartate Amino Transf (AST/SGOT) 28, Alanine Aminotransferase (ALT/SGPT) 60, Alkaline Phosphatase 165H, Total Protein 7.5, Albumin 2.9L, Globulin 4.6, Albumin/Globulin Ratio 0.6L Height (Feet): 5 Height (Inches): 6.00 Weight (Pounds): 164 General Appearance: alert EENT: normal ENT inspection Neck: supple Cardiovascular: normal rate Respiratory/Chest: lungs clear Abdomen: soft, hypoactive bowel sounds Extremities: non-tender Leonard Stein MD Nov 06, 2019 08:57
--- NOTE | 2019-11-06 08:59 | General Progress Note ---
Progress Note Progress Note AVSS Feeling much better today. EGD revealed minimal gastritis - started on Protonix BID and baclofen Abdomen soft, healing well. Rash left upper arm from PICC tape Urine 2750 BCIR ileo 1465 labs okay but platelets up 611,000 Imp: improved Plan; BCIR diet d/c IV fluids and IV meds f/u labs start BCIR self-intubations in AM if stable in AM Dayron Corbett MD Nov 06, 2019 08:59
[2019-11-06] MEDS: Hydrocortisone 1% Cr TOPIC SCH ×2 (10:23→20:57)
[2019-11-06 12:00] VITALS: BP 139/90
--- NOTE | 2019-11-06 14:15 | NUR ---
CASE MANAGEMENT: REVIEW 11/06/2019 SI:ENTEROSTOMY MALFUNCTION VS: T 98.3 HR 95 RR 18 B/P 139/90 SATS 97% ON RA LABS: NA 135 ALP 165 IS:PROTONIX PO Q12H ATIVAN PO BID CYMBALTA PO QD ZYPREXA PO QHS BACLOFEN PO TID MED/SURG PLAN OF CARE: BCIR diet d/c IV fluids and IV meds start BCIR self-intubations
[2019-11-06 16:00] VITALS: BP 143/75
--- NOTE | 2019-11-06 18:00 | NUR ---
NURSE NOTES: Pt remains stable, continues to have high ileo output, and continues to c/o of abdominal cramping all shift , pain medication gives pt some relief. True Ileo 1570 Urine out put 3000
--- NOTE | 2019-11-06 19:31 | NUR ---
HAND-OFF: Report given to Contreras QUINTANA, pt stable.
--- NOTE | 2019-11-06 19:35 | NUR ---
NURSE NOTES: Received report from MARIANO Elder. Pt A/O x4, laying in bed, denies pain, breathing regular and unlabored. No signs of distress noted. IV is Right FA saline locked;. Abdomen dressing clean and intact. Ileo bag is draining to gravity q 3 flush. . Bed at lowest and locked position. Siderails up x3. Call light within reach. Will continue to monitor.
[2019-11-06 20:00] VITALS: BP 136/62
[2019-11-06] MEDS: Dyna-Hex 2% Top Sol 2oz TOPIC SCH (20:00)
[2019-11-06] MEDS: OLANZapine 10mg tab ORAL SCH (20:48)
[2019-11-07] VITALS: BP 145/98
[2019-11-07] MEDS: oxyCODONE HCL/Acetaminophen 5/325mg ORAL PRN ×7 (00:35→21:03)
[2019-11-07 04:00] VITALS: BP 140/78
[2019-11-07 06:06] LABS: BASOPHILS % (AUTO) 2.9 % (0.0-2.0); EOSINOPHILS % (AUTO) 10.7 % (0.0-3.0); HEMATOCRIT 38.9 % (37.0-47.0); HEMOGLOBIN 12.2 G/DL (12.0-16.0); LYMPHOCYTES % (AUTO) 23.1 % (20.0-45.0); MEAN CORPUSCULAR VOLUME 90 FL (80-99); MONOCYTES % (AUTO) 12.1 % (1.0-10.0); NEUTROPHILS % (AUTO) 51.3 % (45.0-75.0); PLATELET COUNT 678 K/UL (150-450); RED BLOOD COUNT 4.32 M/UL (4.20-5.40); RED CELL DISTRIBUTION WIDTH 15.5 % (11.6-14.8); WHITE BLOOD COUNT 6.3 K/UL (4.8-10.8)
[2019-11-07 07:09] LABS: ALANINE AMINOTRANSFERASE 61 U/L (12-78); ALBUMIN 3.3 G/DL (3.4-5.0); ALBUMIN/GLOBULIN RATIO 0.6 (1.0-2.7); ALKALINE PHOSPHATASE 176 U/L (46-116); ANION GAP 12 mmol/L (5-15); ASPARTATE AMINO TRANSFERASE 24 U/L (15-37); BILIRUBIN,TOTAL 0.4 MG/DL (0.2-1.0); BLOOD UREA NITROGEN 6 mg/dL (7-18); CALCIUM 9.1 MG/DL (8.5-10.1); CARBON DIOXIDE 22 MMOL/L (21-32); CHLORIDE 100 MMOL/L (98-107); CREATININE 0.9 MG/DL (0.55-1.30); POTASSIUM 3.9 MMOL/L (3.5-5.1); SODIUM 134 MMOL/L (136-145)
--- NOTE | 2019-11-07 07:13 | NUR ---
HAND-OFF: Report given to MARIANO Elder.Pt stable
--- NOTE | 2019-11-07 07:23 | NUR ---
NURSE NOTES: Received report from Contreras RN, rounds made pt awake, a/ox4 no s/s of distress on RA, pt just finished having breakfast, pt has a RT Forearm 24Glocked , ileostomy on the R lower quad,connected to drainage bag with Q 3 flush schedule, dressing intact clean, redness on the ASIA resolving, bed in low locked position, side rails upX2, call light with in reach , will continue with plan of care
[2019-11-07 08:00] VITALS: BP 143/68
[2019-11-07] MEDS: LORazepam 1mg tab ORAL SCH ×2 (08:42→17:45)
[2019-11-07] MEDS: Hydrocortisone 1% Cr TOPIC SCH ×2 (08:43→21:03)
--- NOTE | 2019-11-07 08:44 | General Progress Note ---
Assessment/Plan Problem List: (1) Nausea & vomiting ICD Codes: R11.2 - Nausea with vomiting, unspecified SNOMED: 50327626 (2) Gastroenterology follow-up encounter ICD Codes: Z09 - Encounter for follow-up examination after completed treatment for conditions other than malignant neoplasm SNOMED: 846457491 (3) Anemia ICD Codes: D64.9 - Anemia, unspecified SNOMED: 571314198 (4) Hyponatremia ICD Codes: E87.1 - Hypo-osmolality and hyponatremia SNOMED: 06886164 (5) Hypomagnesemia ICD Codes: E83.42 - Hypomagnesemia SNOMED: 416250436 Assessment/Plan: CT reviewed fu lfts on protonix and baclofen with great results s/p EGD>>> gastritis will fu Subjective ROS Limited/Unobtainable: Yes Allergies: Coded Allergies: SULFA (SULFONAMIDE ANTIBIOTICS) (Verified Allergy, Severe, Itching, ) FACIAL SWELLING. LATEX (Verified Allergy, Unknown, 11/07/19) Uncoded Allergies: SULFA (Allergy, Unknown, 10/21/19) Objective Last 24 Hour Vital Signs Date Time Temp Pulse Resp B/P (MAP) Pulse Ox O2 Delivery O2 Flow Rate FiO2 11/07/19 08:00 98.1 97 20 143/68 (93) 99 11/07/19 04:00 98.0 77 19 140/78 (98) 96 11/07/19 00:00 98.3 90 19 145/98 (114) 96 11/06/19 21:00 Room Air 11/06/19 20:00 98.3 78 19 136/62 (86) 97 11/06/19 16:00 97.9 76 20 143/75 (97) 97 11/06/19 12:00 98.3 95 18 139/90 (106) 97 11/06/19 09:00 Room Air Intake and Output 11/06/19 11/07/19 19:00 07:00 Intake Total 3608 ml 1210 ml Output Total 4570 ml 2950 ml Balance -962 ml -1740 ml Intake Oral 3608 ml 1210 ml Output Urine Total 3000 ml 2300 ml Other 1570 ml 650 ml Laboratory Tests 11/07/19 04:45: White Blood Count 6.3, Red Blood Count 4.32, Hemoglobin 12.2, Hematocrit 38.9, Mean Corpuscular Volume 90, Mean Corpuscular Hemoglobin 28.2, Mean Corpuscular Hemoglobin Concent 31.3L, Red Cell Distribution Width 15.5H, Platelet Count 678H , Mean Platelet Volume 5.9L, Neutrophils (%) (Auto) 51.3, Lymphocytes (%) (Auto ) 23.1, Monocytes (%) (Auto) 12.1H, Eosinophils (%) (Auto) 10.7H, Basophils (%) (Auto) 2.9H, Sodium Level 134L, Potassium Level 3.9, Chloride Level 100, Carbon Dioxide Level 22, Anion Gap 12, Blood Urea Nitrogen 6L, Creatinine 0.9, Estimat Glomerular Filtration Rate > 60, Glucose Level 87, Calcium Level 9.1, Total Bilirubin 0.4, Aspartate Amino Transf (AST/SGOT) 24, Alanine Aminotransferase ( ALT/SGPT) 61, Alkaline Phosphatase 176H, Total Protein 8.5H, Albumin 3.3L, Globulin 5.2, Albumin/Globulin Ratio 0.6L Height (Feet): 5 Height (Inches): 6.00 Weight (Pounds): 164 General Appearance: no apparent distress EENT: normal ENT inspection Neck: supple Cardiovascular: normal rate Respiratory/Chest: decreased breath sounds Abdomen: normal bowel sounds, non tender, soft Extremities: non-tender Leonard Stein MD Nov 07, 2019 08:44
[2019-11-07] MEDS ORDERED: NS Irrig 1000ml ONE (09:47)
--- NOTE | 2019-11-07 09:52 | General Progress Note ---
Progress Note Progress Note AVSS Doing well not with protonix and baclofen. Took 50% BCIR diet and 4800cc po fluids Abdomen soft, nabila removed and steri-strips applied Urine 5220 BCIR ileo 2220 labs all stable albumin 3.3 BCIR ileo catheter removed - reinserts readily Imp: Doing well Plan; RN supervised BCIR self-intubations q3h am to hs and prn continue strict I&O Dayron Corbett MD Nov 07, 2019 09:52
[2019-11-07 12:00] VITALS: BP 143/81
--- NOTE | 2019-11-07 12:43 | NUR ---
CASE MANAGEMENT:REVIEW 11/07/19 SI: POD #12 S/P REVISION OF HENNING CONTINENT ILEOSTOMY VALVE 97.8 90 18 143/81 99% ON RA PLT+678 ALB-3.3 IS: HYDROCORTISONE TOPIC Q12 PERCOCET PO Q3HRS PRN PROTONIX PO Q12 BACLOFEN PO TID ATIVAN PO BID CYMBALTA PO QD ZYPREXA PO QHS : MED/SURG STATUS 3EAST PLAN: BCIR LOW RESIDUE DIET ABENA REMOVED, STERI STRIPS APPLIED RN SUPERVISED BCIR SELF INTUBATIONS Q3HRS CONTINUE STRICT I&O
--- NOTE | 2019-11-07 13:38 | NUR ---
INSURANCE REVIEWS AND CLINCALS FOR 11/05 AND 11/06 FAXED TO [employer]HEEM T: [phone] F: [phone] AUTH # [id number]
--- NOTE | 2019-11-07 14:16 | NUR ---
PT Note Attempted to see patient x 3 but patient was occupied; was on the phone each time. Patient requested to defer PT today.
[2019-11-07 16:00] VITALS: BP 124/63
--- NOTE | 2019-11-07 18:00 | NUR ---
NURSE NOTES: Pt remains stable, pt started intubation and at 1500, stoma leaked and 4x4 was saturated with stool, after intubation stoma site was irritated and there was blood stain on the 4x4 Carmita, but patient inserted the catheter without looking closely at the stoma site, i reenforced how to insert catheter slowly and gently, to continue to promote the healing process At 1800, there was no leakage from stoma site , and no blood at the site, pt intubated with help of nurse.
--- NOTE | 2019-11-07 19:12 | NUR ---
HAND-OFF: Report given to Contreras QUINTANA, pt stable.
--- NOTE | 2019-11-07 19:24 | NUR ---
NURSE NOTES: Received report from MARIANO Elder. Pt A/O x4, laying in bed, denies pain, breathing regular and unlabored. No signs of distress noted. No IV access;. Abdomen dressing clean and intact. BCIR - self intubations from awakening to HS q3h and PRN, and overnight PRN only. Bed at lowest and locked position. Siderails up x3. Call light within reach. Will continue to monitor.
[2019-11-07 20:00] VITALS: BP 131/76
[2019-11-07] MEDS: Dyna-Hex 2% Top Sol 2oz TOPIC SCH (20:00)
[2019-11-07] MEDS: OLANZapine 10mg tab ORAL SCH (21:02)
[2019-11-08] VITALS: BP 136/75
[2019-11-08] MEDS: oxyCODONE HCL/Acetaminophen 5/325mg ORAL PRN ×4 (01:16→11:51)
[2019-11-08 04:00] VITALS: BP 140/75
--- NOTE | 2019-11-08 07:00 | Procedure Note ---
DATE OF PROCEDURE: 11/05/2019 SURGEON: Leonard Stein MD. PROCEDURE: Upper endoscopy with biopsy. ANESTHESIA: Per REGISTERED RADIOGRAPHER, Shikha Tarrillion. INSTRUMENT: Olympus adult flexible upper endoscope. INDICATION: GI bleeding. REASON FOR PROCEDURE: The procedure, risks, benefits, and possible consequences, including hemorrhage, aspiration, perforation and infection, and alternative treatments, were explained to the patient/legal guardian by Dr. Leonard Stein and the patient/legal guardian understood and accepted these risks. DESCRIPTION OF PROCEDURE: After informed consent was obtained and patient was adequately sedated, Olympus upper endoscope was advanced from mouth in to the second portion of the duodenum and retroflexion was performed in the stomach. The patient had diffuse gastritis. Random biopsy from antrum was obtained to rule out H. pylori infection. Otherwise, the rest of upper endoscopic examination grossly within normal limits. The patient tolerated procedure very well without any complications. SUMMARY OF FINDINGS: Gastritis, status post biopsy, otherwise normal upper endoscopic examination. RECOMMENDATION: Followup biopsy results and treat accordingly. I want to thank, Dr. Dayron Corbett, for this kind referral. Leonard Stein M.D. DR: Kathy JOB#: [id number] CC: Dayron Corbett M.D.; Fax#: [phone]
--- NOTE | 2019-11-08 07:33 | NUR ---
HAND-OFF: Report given to MARIANO Arenas.
--- NOTE | 2019-11-08 07:41 | NUR ---
NURSE NOTES: Patient alert x4; on room air, no sing of shortness of breath; no sing of chest pain; No IV access, MD Corbett aware; BCIR pouch on Right Lower Quadrant, patient started self intubating yesterday, patient encouraged to intubate as needed; dressing dry and intact; side rails up x2, breaks engaged, bed at lowest position; call light within reach; will keep monitoring.
[2019-11-08 08:00] VITALS: BP 160/76
[2019-11-08] MEDS: Captopril 12.5mg tab SL PRN (08:38)
[2019-11-08] MEDS: LORazepam 1mg tab ORAL SCH (08:38)
[2019-11-08] MEDS: Hydrocortisone 1% Cr TOPIC SCH (08:42)
--- NOTE | 2019-11-08 09:08 | General Progress Note ---
Progress Note Progress Note AVSS Tolerating BCIR diet and self-intubations of her Saucedo continent ileostomy pouch but has watery output and incontinence but no difficulty intubating Abdomen soft, incision healed Urine 2840 BCIR ileo 1055 Imp: Pouchitis with watery ileo output and incontinence Plan; Rx: Cipro 500mg po q12h #30 Percocet 5/325 #40 Protonix 40mg #30 QD f/u office 11/12/2019 Plan: Discharge Instructions/limitations/supplies provided/discussed Dayron Corbett MD Nov 08, 2019 09:08
--- NOTE | 2019-11-08 09:59 | General Progress Note ---
Assessment/Plan Problem List: (1) Nausea & vomiting ICD Codes: R11.2 - Nausea with vomiting, unspecified SNOMED: 77464174 (2) Gastroenterology follow-up encounter ICD Codes: Z09 - Encounter for follow-up examination after completed treatment for conditions other than malignant neoplasm SNOMED: 589285381 (3) Anemia ICD Codes: D64.9 - Anemia, unspecified SNOMED: 059764529 (4) Hyponatremia ICD Codes: E87.1 - Hypo-osmolality and hyponatremia SNOMED: 10703529 (5) Hypomagnesemia ICD Codes: E83.42 - Hypomagnesemia SNOMED: 716481992 Assessment/Plan: CT reviewed fu lfts on protonix and baclofen with great results s/p EGD>>> gastritis pending discharge Subjective ROS Limited/Unobtainable: No Allergies: Coded Allergies: SULFA (SULFONAMIDE ANTIBIOTICS) (Verified Allergy, Severe, Itching, ) FACIAL SWELLING. LATEX (Verified Allergy, Unknown, 11/07/19) Uncoded Allergies: SULFA (Allergy, Unknown, 10/21/19) Objective Last 24 Hour Vital Signs Date Time Temp Pulse Resp B/P (MAP) Pulse Ox O2 Delivery O2 Flow Rate FiO2 11/08/19 09:09 98.6 11/08/19 09:00 Room Air 11/08/19 08:38 160/76 11/08/19 08:00 98.6 103 20 160/76 (104) 97 11/08/19 04:00 97.9 78 18 140/75 (96) 96 11/08/19 00:00 98.0 80 16 136/75 (95) 97 11/07/19 21:00 Room Air 11/07/19 20:00 97.9 91 16 131/76 (94) 94 11/07/19 16:00 97.8 88 18 124/63 (83) 96 11/07/19 12:00 97.8 90 18 143/81 (101) 99 Intake and Output 11/07/19 11/08/19 19:00 07:00 Intake Total 1309 ml 1100 ml Output Total 2395 ml 1500 ml Balance -1086 ml -400 ml Intake Oral 1309 ml 1100 ml Output Urine Total 1490 ml 1350 ml Other 905 ml 150 ml Height (Feet): 5 Height (Inches): 6.00 Weight (Pounds): 164 General Appearance: alert EENT: normal ENT inspection Neck: supple Cardiovascular: normal rate Respiratory/Chest: decreased breath sounds Abdomen: normal bowel sounds, non tender, soft Extremities: non-tender Leonard Stein MD Nov 08, 2019 09:59
[2019-11-08 10:00] VITALS: BP 127/56
[2019-11-08] MEDS ORDERED: Ciprofloxacin 500mg tab ORAL SCH (10:00)
--- NOTE | 2019-11-08 11:42 | NUR ---
*-* INSURANCE *-* ALL AVAILABLE CLINICALS HAVE BEEN FAXED TO: GLORIA T: [phone] F: [phone] AUTH # [id number]
--- NOTE | 2019-11-08 12:18 | NUR ---
NURSE NOTES: Patient discharged to home; left the floor by wheelchair, accompanied by nursing specialist Monster; patient and discharging nurse signed the belonging lists, patient had all her belongings; name tag removed; patient's abdominal dressing charged this morning and its dry and intact upon discharge; patient's own medications given back to patient; new prescription medications given to patient; printed material and patient teaching given at the bed side; supplies 28 Simmons, catheter lug, drainage bag, leg bag and irrigation tray, lubricating jelly provided upon discharge; patient is stable upon discharge;
--- NOTE | 2019-11-08 13:37 | NUR ---
*-* INSURANCE *-* UPDATED CLINICALS AND DISCHARGE INSTRUCTIONS FAXED:(NO D/C SUM IN SYSTEM) GLORIA T: [phone] F: [phone] [facility] # [id number]
--- NOTE | 2019-11-08 17:54 | Diagnostic Imaging Report ---
Indications: Needs long-term IV access Technique: Ultrasound confirms patent compressible basilic vein. Total sterile technique, including sterile probe cover and sterile gel, hat, mask,, sterile gown, large sterile drape, and preparation with 2% chlorhexidine utilized. Local anesthesia with 1% lidocaine. Under real-time ultrasound guidance, puncture of basilic vein using 21-gauge needle, documented and archived, passage 0.018 guidewire under direct fluoroscopy, which was used to determine appropriate catheter length, exchange for 5 [place] peel-away sheath. 5 [place] Bard dual-lumen power PICC cut to 43 cm. It was inserted through the peel-away sheath. Peel-away sheath and guidewire removed. Catheter fixed to the skin. Both catheter ports aspirated and flushed. Patient tolerated procedure well, without immediate complication. Digital radiograph documents satisfactory catheter tip position, at the cavoatrial junction. Total fluoroscopy time 105 seconds. Total dose: 8.25mGy Impression: Successful placement of left basilic PICC under sonographic and fluoroscopic guidance, as described above.
--- NOTE | 2019-11-09 13:13 | NUR ---
*-* NO DISCHARGE SUMMARY IN THE SYSTEM UNABLE TO SEND TO INS [facility]. *-*
--- NOTE | 2019-11-09 14:47 | NUR ---
*-* NO DISCHARGE SUM IN THE SYSTEM UNABLE TOFAX
--- NOTE | 2019-11-09 18:48 | Discharge Summary ---
Discharge Summary Hospital Course Date of Admission Oct 21, 2019 at 02:30 Date of Discharge Nov 08, 2019 at 12:13 Admitting Diagnosis Malfunctioning Saucedo continent ileostomy with difficulty with intubation and incontinence Reason for Hospitalization: elective surgery HPI 64 year old female who was admitted through the emergency room with a severely malfunctioning Saucedo continent ileostomy and unexpected severe anemia. The patient with a past history of ulcerative colitis and has previously undergone total colectomy with failed J-pouch and creation of Saucedo continent ileostomy and with revisions, all of which will be listed at the end of this dictation. In the past several weeks, she suddenly developed difficulty inserting her catheter and incontinence of stool and gas from her previously continent Saucedo pouch stoma. She was finally able to get a catheter in place, butit did not drain well. At the time she presented, her hemoglobin was 7.7. She has had no evidence of bleeding. She was hemodynamically stable. The patient was assessed and an indwelling 28-Iranian Simmons catheter manipulated through her stoma into the continent ileostomy pouch and connected to gravity drainage. She required transfusion, which initiated in the emergency department. Consultations Dr Stein -GI specialist Procedures s/p 10/22/[address] Corbett Saucedo continent ileostomy pouch endoscopy s/p 10/26/[address] Corbett Laparotomy with revision of Saucedo continent ileostomy nipple valve s/p 11/05/[address] Stein Upper endoscopy with biopsy. Hospital Course patient admitted from ED with malfunctioning Saucedo continent ileostomy with a severe difficulty intubating pouch and gross incontinence of stool and gas in emergency department patient was found to have hemoglobin 7.7 , sodium 122 , magnesium 1.4 magnesium was replaced patient was transfused with 2 units of packed red blood cells anemia work-up was initiated IV fluids with NS started continuous drainage of Saucedo pouch initiated patient subsequently undergone endoscopy of Saucedo continent ileostomy PICC line was placed patient started on TPN continuous drainage of Saucedo pouch was maintained labs were closely monitored patient was on clear liquid diet along with TPN full discussion with patient regarding surgery, indications, alternatives, options and risks provided ; all questions answered bowel preparation initiated patient started on oral and IV antibiotic perioperatively subcutaneous heparin given TPN continued patient subsequently undergone on 10/25 laparotomy with revision of Saucedo continent ileostomy nipple valve postoperatively pain management was addressed with [employer] morphine and Toradol magnesium was replaced patient was kept n.p.o. ; on TPN Simmons was continued due to pelvic dissection ambulation was encouraged incentive spirometry was encouraged while in the bed intake and output were closely monitored along with the labs [employer] morphine was changed to Dilaudid with demand dosing only on 10/13/2018 ileus was slowly resolving on 10/30 patient started on clear liquid diet IV fluids discontinue, TPN continue Simmons catheter and antibiotics subsequently discontinued on 10/31 patient started on BCIR diet TPN continued patient reported dizziness and nausea , started on Antivert as needed continuous drainage of Saucedo pouch was maintained Patient was slowly improving TPN was tapered and discontinued on 11/02 TPN was stopped , but patient was not eating well and still complained of persistent nausea and abdominal pain patient started on the IV fluids continuous drainage of Saucedo pouch was maintained stat CT scan of the abdomen and pelvis with oral and IV contrast revealed postoperative changes, but was negative for any acute pathology GI consult was requested patient started on Protonix and baclofen LFT were monitored patient subsequently undergone on 11/07 upper endoscopy with biopsy, which revealed gastritis , otherwise normal upper endoscopic examination pathology of gastric antrum revealed mild chronic gastritis, no H. pylori was identified patient started back on BCIR diet IV fluids discontinued patient clinically improved and started on BCIR self intubation on 11/06 every 3 hours a.m. to hs and as needed strict intake and output continued patient had no difficulties with self intubation patient noted to have a watery output from pouch , but no difficulty intubating patient started on Cipro for pouchitis, script provided discharge instructions/limitations/supplies provided/discussed patient was ready for discharge home with outpatient follow up in the office 11/11 FINAL DIAGNOSES 1. Malfunctioning Saucedo continent ileostomy with difficulty with intubation and incontinence. 2. History of ulcerative colitis. 3. STATUS POST MULTIPLE ABDOMINAL OPERATIONS: 3.1. Total colectomy with ileoanal J-pouch first in 1989 and then repeated, failed both times. 3.2. Saucedo continent ileostomy in 1994. 3.3. Repair of spontaneous perforation x2 of Saucedo pouch with primary repair in 2009. 3.4. Repair of Saucedo pouch enterocutaneous fistula in 2012. (All of these operations were done elsewhere). 4. s/p Laparotomy with revision of Saucedo continent ileostomy nipple valve. 5. Anemia 6. Severe hyponatremia 7. Malnutrition 8. Ileus 9. Nausea and vomiting 10. Gastritis 11. Pouchitis Discharge Medications Continued Medications: Duloxetine Hcl* (Cymbalta*) 30 Mg Capsule.dr 60 MG ORAL DAILY for depression, CAP Lorazepam* (Lorazepam*) 2 Mg/1 Ml Vial 2 MG PO BID PRN for For Anxiety, VIAL Olanzapine* (Zyprexa*) 10 Mg Tablet 10 MG ORAL DAILY for depression, #30 TAB 0 Refills (This prescription has been renewed) Discharge Condition Upon Discharge: stable Discharge Vital Signs Last Vital Signs Date Time Temp Pulse Resp B/P (MAP) Pulse Ox O2 Delivery O2 Flow Rate FiO2 11/08/19 12:21 98.6 11/08/19 10:00 94 20 127/56 (79) 96 11/08/19 09:00 Room Air Discharge Disposition Patient was discharged to Home (01) Discharge Instructions Discharge Instructions Special Instructions I have been assigned to complete a D/C Summary on this account. I was not involved in the patient management Bri Pelayo NP Nov 09, 2019 18:48
--- NOTE | 2019-11-10 10:34 | NUR ---
*-* INSURANCE *-* DISCHARGE SUMMARY HAS BEEN FAXED TO: GLORIA T: [phone] F: [phone] AUTH # [id number]
== END 2019-11-08 12:13 | disposition home or self-care (01) | DRG 330 ==
LOC: EMR 02:15 → 3E 02:30 → EDBEDREQ 03:57 → 3E 10-23 06:23
PROC: 0DJD8ZZ Inspection of Lower Intestinal Tract, Via Natural or Artificial Opening Endoscopic (ICD-10-PCS; principal; 2019-10-21 13:05)
PROC: 02HV33Z Insertion of Infusion Device into Superior Vena Cava, Percutaneous Approach (ICD-10-PCS; 2019-10-22)
PROC: B548ZZA Ultrasonography of Superior Vena Cava, Guidance (ICD-10-PCS; 2019-10-22)
PROC: 0DQ80ZZ Repair Small Intestine, Open Approach (ICD-10-PCS; 2019-10-26)
PROC: 0DD78ZX Extraction of Stomach, Pylorus, Via Natural or Artificial Opening Endoscopic, Diagnostic (ICD-10-PCS; 2019-11-05)
DX: K94.13 Enterostomy malfunction (principal); E87.1 Hypo-osmolality and hyponatremia; E46 Unspecified protein-calorie malnutrition; K56.7 Ileus, unspecified; K91.850 Pouchitis; E83.42 Hypomagnesemia; D64.9 Anemia, unspecified; K29.50 Unspecified chronic gastritis without bleeding; R15.9 Full incontinence of feces; Z68.26 Body mass index [BMI] 26.0-26.9, adult
CPT/HCPCS: 36415; 36569; 71045; 74177; 76937; 80053; 81003; 82607; 82728; 82746; 82962; 83540; 83735; 84100; 85025; 85610; 85730; 86850; 86900; 86901; 86920; 87324; 93005; 94003; 94150; 96365; 99291; J1815; J2250; J2405; J7030; U0002